=== PATIENT | male | born 1945 | race Caucasian/White ===

== ENCOUNTER 2021-06-20 14:18 | Emergency (ER) | payer OTHER ==
[~2021-06-20] VITALS: Ht 182.9 cm; Wt 117.9 kg
[2021-06-20 15:49] LABS: BASOPHILS ABSOLUTE AUTO 0.05 K/mm3 (0.00-0.23); BASOPHILS PERCENT AUTO 1 % (0-2); EOSINOPHILS ABSOLUTE AUTO 0.24 K/mm3 (0.00-0.68); EOSINOPHILS PERCENT AUTO 3 % (0-6); Hematocrit 39.5 % (37.0-53.0); Hemoglobin 12.6 g/dL (13.5-17.5); IMMATURE GRAN ABSOLUTE AUTO 0.03 K/mm3 (0.00-0.10); IMMATURE GRAN PERCENT AUTO 0 % (0-1); LYMPHOCYTES ABSOLUTE AUTO 0.66 K/mm3 (0.84-5.20); LYMPHOCYTES PERCENT AUTO 9 % (21-46); MONOCYTES ABSOLUTE AUTO 1.08 K/mm3 (0.16-1.47); MONOCYTES PERCENT AUTO 15 % (4-13); Mean Corpuscular HGB 29.4 pg (26.0-34.0); Mean Corpuscular HGB Conc 31.9 g/dL (31.5-36.5); Mean Corpuscular Volume 92 fL (80-100); Mean Platelet Volume 10.3 fL (9.1-12.4); NEUTROPHILS ABSOLUTE AUTO 5.18 K/mm3 (1.96-9.15); NEUTROPHILS PERCENT AUTO 72 % (41-73); Platelet Count 219 K/mm3 (150-400); RDW Standard Deviation 47.4 fL (35.1-46.3); Red Blood Cell Count 4.28 M/mm3 (4.30-5.90); White Blood Cell Count 7.24 K/mm3 (4.00-11.30)
[2021-06-20 16:04] LABS: Albumin, Blood 3.2 g/dL (3.4-5.0); Bilirubin, Total 1.2 mg/dL (0.1-1.0); Bun/Creatinine Ratio 13.4 (12.0-20.0); Calcium, Blood 8.6 mg/dL (8.5-10.1); Creatinine, Blood 2.02 mg/dL (0.60-1.20); Globulin, Blood 3.3 g/dL (2.2-4.0); Potassium, Blood 3.2 mmol/L (3.5-5.5); Total Protein, Blood 6.5 g/dL (6.4-8.2)
== END 2021-06-20 16:44 | disposition left against medical advice (07) ==
LOC: ER 14:18
PROVIDERS: Physician Assistant
DX: R21 Rash and other nonspecific skin eruption (principal); Z53.21 Procedure and treatment not carried out due to patient leaving prior to being seen by health care provider
CPT/HCPCS: 36415; 71046; 80053; 83690; 83880; 84484; 85025; 93005; 93010; 93971; 99284-25

== ENCOUNTER 2021-08-19 20:51 | Inpatient (IN) | payer OTHER ==
[~2021-08-19] VITALS: Ht 182.9 cm; Wt 123.5 kg
[2021-08-19 21:44] LABS: BASOPHILS ABSOLUTE AUTO 0.04 K/mm3 (0.00-0.23); BASOPHILS PERCENT AUTO 1 % (0-2); EOSINOPHILS PERCENT AUTO 1 % (0-6); Hematocrit 38.4 % (37.0-53.0); Hemoglobin 12.6 g/dL (13.5-17.5); IMMATURE GRAN ABSOLUTE AUTO 0.02 K/mm3 (0.00-0.10); IMMATURE GRAN PERCENT AUTO 0 % (0-1); LYMPHOCYTES ABSOLUTE AUTO 0.43 K/mm3 (0.84-5.20); LYMPHOCYTES PERCENT AUTO 6 % (21-46); MONOCYTES ABSOLUTE AUTO 0.86 K/mm3 (0.16-1.47); MONOCYTES PERCENT AUTO 12 % (4-13); Mean Corpuscular HGB 28.4 pg (26.0-34.0); Mean Corpuscular HGB Conc 32.8 g/dL (31.5-36.5); Mean Corpuscular Volume 87 fL (80-100); Mean Platelet Volume 9.8 fL (9.1-12.4); NEUTROPHILS PERCENT AUTO 80 % (41-73); Platelet Count 305 K/mm3 (150-400); RDW Coefficient Variation 17.3 % (11.7-14.2); RDW Standard Deviation 54.6 fL (35.1-46.3); Red Blood Cell Count 4.43 M/mm3 (4.30-5.90); White Blood Cell Count 7.35 K/mm3 (4.00-11.30)
[2021-08-19 22:01] LABS: Albumin, Blood 2.9 g/dL (3.4-5.0); Albumin/Globulin Ratio 0.7 (0.8-1.8); Bilirubin, Total 1.8 mg/dL (0.1-1.0); Bun/Creatinine Ratio 14.6 (12.0-20.0); Creatinine, Blood 1.85 mg/dL (0.60-1.20); Potassium, Blood 3.5 mmol/L (3.5-5.5); Total Protein, Blood 6.9 g/dL (6.4-8.2)
[2021-08-19 23:52] LABS: Influenza A, PCR NEGATIVE (NEGATIVE); Influenza B, PCR NEGATIVE (NEGATIVE); Resp Syncytial Virus, PCR NEGATIVE (NEGATIVE); SARS-Cov-2 (COVID-19) PCR, MMC NEGATIVE (NEGATIVE)
[2021-08-20 01:18] LABS: BASOPHILS ABSOLUTE AUTO 0.03 K/mm3 (0.00-0.23); BASOPHILS PERCENT AUTO 1 % (0-2); EOSINOPHILS ABSOLUTE AUTO 0.06 K/mm3 (0.00-0.68); EOSINOPHILS PERCENT AUTO 1 % (0-6); Hematocrit 34.4 % (37.0-53.0); Hemoglobin 11.3 g/dL (13.5-17.5); IMMATURE GRAN ABSOLUTE AUTO 0.01 K/mm3 (0.00-0.10); IMMATURE GRAN PERCENT AUTO 0 % (0-1); LYMPHOCYTES ABSOLUTE AUTO 0.35 K/mm3 (0.84-5.20); LYMPHOCYTES PERCENT AUTO 5 % (21-46); MONOCYTES ABSOLUTE AUTO 0.37 K/mm3 (0.16-1.47); MONOCYTES PERCENT AUTO 6 % (4-13); Mean Corpuscular HGB 28.6 pg (26.0-34.0); Mean Corpuscular HGB Conc 32.8 g/dL (31.5-36.5); Mean Corpuscular Volume 87 fL (80-100); Mean Platelet Volume 10.1 fL (9.1-12.4); NEUTROPHILS ABSOLUTE AUTO 5.66 K/mm3 (1.96-9.15); NEUTROPHILS PERCENT AUTO 87 % (41-73); Platelet Count 268 K/mm3 (150-400); RDW Coefficient Variation 17.2 % (11.7-14.2); RDW Standard Deviation 54.6 fL (35.1-46.3); Red Blood Cell Count 3.95 M/mm3 (4.30-5.90); White Blood Cell Count 6.48 K/mm3 (4.00-11.30)
[2021-08-20 01:31] LABS: Albumin, Blood 2.4 g/dL (3.4-5.0); Albumin/Globulin Ratio 0.7 (0.8-1.8); Bilirubin, Total 1.5 mg/dL (0.1-1.0); Calcium, Blood 7.7 mg/dL (8.5-10.1); Creatinine, Blood 1.56 mg/dL (0.60-1.20); Globulin, Blood 3.4 g/dL (2.2-4.0); Potassium, Blood 3.2 mmol/L (3.5-5.5); Total Protein, Blood 5.8 g/dL (6.4-8.2)
[2021-08-20 03:51] LABS: Source, Urine Foley catheter
[2021-08-20 03:53] LABS: Bilirubin, Urine Neg (Neg); Blood, Urine Neg (Neg); Glucose Qualitative, Urine Neg (Neg); Ketones, Urine Neg (Neg); Leukocyte Esterase, Urine Neg (Neg); Nitrite, Urine Neg (Neg); Protein, Urine Neg (Neg); Specific Gravity, Urine 1.015 (1.003-1.022); Urobilinogen, Urine NORM (Normal)
[2021-08-20 04:10] LABS: Appearance, Urine Clear (Clear); Color, Urine Yellow (P-Yellow)
--- NOTE | 2021-08-20 06:29 | NUR ---
SHIFT SUMMARY PT RESTED SOME AFTER ADMISSION FROM ER. ALERT AND ORIENTED, ABLE TO MAKE NEEDS KNOWN. A LITTLE FORGETFUL AT TIMES. SATS >90% ON ROOM AIR. HAS ORDERS FOR CPAP TO DECREASE FLUID VOL OVERLOAD ON LUNGS, BUT PATIENT DOES NOT WANT TO WEAR CPAP. TELE READS AFIB, RATE 110'S. NO CHEST PAIN. DIURESING, VOIDING TO URINAL. SEVERE FVO, BLE WOUNDS, SOME WEEPING. SCROTAL SWELLING. NO PAIN.
--- NOTE | 2021-08-20 09:06 | NUR ---
CARE ASSUMPTION THIS RN ASSUMED CARE FROM KIARRA RN AT 0700. VSS. TELE AFIB 100-115. PATIENT IS ALERT AND ORIENTED X4. PATIENT IS FORGETFUL AND CONFUSED AT TIMES AND NEEDS REMINDERS. PATIENT WILL CALL OUT FOR STAFF INSTEAD OF USING CALL LIGHT. THIS RN HAS EDUCATED AND REMINDED THE PATIENT TO USE CALL LIGHT. PATIENT YELLS OUT "OH LORD HELP ME". PATIENT HAS EXPRESSED WANTING TO GO HOME AND GET BACK TO HIS BECAUSE SHE HAS SHORT TERM MEMORY LOSS. A FRIEND IS CURRENTLY WITH HIS THE PATIENT STATES. THIS RN TRIED TO CALL HIS FOR HIM, BUT WAS UNABLE TO REACH HER. PATIENT CALLED A FAMILY MEMBER AND SPOKE WITH THEM THIS AM. PERRLA. PATIENT HAS A BILATERAL CYST/GROWTH IN THE CORNER OF HIS EYES. STATES HE NORMALLY HAS CRUSTYS AND WIPES THEM AWAY. PATIENT REPORTS NO PAIN. PATIENT REPORTS NO CHEST PAIN. STRONG RADAIL PULSES AND PEDIS. +3EDEMA IN BILATERAL LEGS. EDEMA IN SCROTUM. PATIENT STATES HIS SCROTUM AND LEGS ARE NORMALLY SWOLLEN, BUT ITS GETTING BETER. PATIENT USES THE BEDSIDE URINAL AND IS ABLE TO PRODUCE OUTPUT, BUT IS MINIMAL AT A TIME. ABD IS FIRM NONTENDER AND ACTIVE. SKIN HAS BILATERALLY SCAB/SCAR/REDDNESS TO LOWER EXTREMITIES. LEFT WRIST HAS PUNCTURE/SCAB. DRESSINGS APPLIED TO BOTH. WOUND CONSULT HAS BEEN PUT IN PLACE. PATIENT HAS SCATTERED SCABBING THROUGHOUT. MEPILEX TO BOTTOOM PREVENTIVE. SEE SHIFT ASSESSMENT FOR FURTHER DETAILS. PATIENT CAN TAKE ORAL MEDICATIONS WITH WATER. AM CARE PERFORMED BY PATIENT AFTER RN GAVE THE PATIENT SUPPLIES. PATIENT IS CURRENTLY EATING BREAKFAST AND HAS A FRIEND AT BEDSIDE. CALL LIGHT IS WITHIN REACH, BED IN LOWEST POSITION, AND BED ALARM ON. WILL CONTINUE TO MONITOR AND PROVIDE CARE.
[2021-08-20 11:29] LABS: Magnesium, Blood 2.4 mg/dL (1.6-2.4); Thyroid Stimulating Hormone 2.28 uIU/mL (0.360-4.800)
--- NOTE | 2021-08-20 11:49 | NUR ---
UPDATE MD MENON IN TO SEE PATIENT THIS AM. DISCUSSED THE PLAN OF CARE. PER MD ORDERS PATIENT IS PLACED ON A LASIX GTT AT 5MLS/HR. STRICT I&OS. PATIENT IS ABLE TO VOID SO CATHETER IS NOT PLACED. THIS RN SPOKED TO PATIENT SON ABOUT AN UPDATE. PATIENT SON, STEPHANIE IS ON HIS WAY FROM [place] TO BROILER CHEF OR COOK HIS MOM, PATIENTS , AND THEN WILL COME IN TOMORROW AM. PATIENT SON WAS INQUIRING ABOUT RESOURCES THEY COULD HAVE AT HOME, DUE TO THE PATIENTS HAVING DEMENTIA AND THE PATIENT TAKING CARE OF HER AND LACKING ON HIS SELF-CARE. THIS RN SPOKE WITH CARE MANAGEMENT ABOUT THE REQUEST AND DISCUSSED HOME HEALTH OR ASSISTED LIVING FACILITY. CARE MANAGEMENT IS GOING TO LOOK INTO THE INSURANCE AND DISCUSS WITH THE SON TO DEVELOP MORE OF A PLAN OF CARE FOR PATIENT POST DISCHARGE.
[2021-08-20] MEDS ORDERED: ALBU90OI INH (12:33)
[2021-08-20] MEDS ORDERED: AMLO10 PO (12:34)
[2021-08-20] MEDS ORDERED: ELIQUIS5 M2 PO (12:35)
[2021-08-20] MEDS ORDERED: LOSA50 PO (12:36)
[2021-08-20] MEDS ORDERED: FURO40 PO (12:36)
[2021-08-20] MEDS ORDERED: METO50ER PO (12:37)
[2021-08-20] MEDS ORDERED: NIACIN500 M1 PO (12:40)
[2021-08-20] MEDS ORDERED: POTA10T PO (12:41)
[2021-08-20] MEDS ORDERED: ROSU5 PO (12:42)
[2021-08-20] MEDS ORDERED: TRAZ50 PO (13:40)
[2021-08-20] MEDS ORDERED: SERT50 PO (13:40)
--- NOTE | 2021-08-20 13:40 | NUR ---
UPDATE THIS RN RECEIVED MEDICATION LIST FROM MS. PATIENT HOME MEDS ARE UPDATED IN CHART.
[2021-08-20 13:54] LABS: CPK Creatine Kinase 180 U/L (39-308)
--- NOTE | 2021-08-20 17:53 | NUR ---
SHIFT SUMMARY PATIENT NEURO REMAINS INTACT. VSS. TELE AFIB 100S. LASIX INFUSING. MAN CATH PLACED FOR STRICT I&OS. SAMPLE SENT TO LAB. PATIENT HAS HAD MULTIPLE VISITORS THROUGHOUT THE DAY. PATIENT HAD A BREATHING TREATMENT THIS EVENING FOR SHORTNESS OF BREATH AND WHEEZY. NO ACUTE CHANGES THIS SHIFT. CALL LIGHT WITHIN REACH AND BED IN LOWEST POSITION WITH BED ALARM ON. WILL CONTINUE TO MONITOR AND PROVIDE CARE UNTIL HAND OFF WITH NEXT SHIFT.
[2021-08-21 00:34] LABS: Albumin, Blood 2.8 g/dL (3.4-5.0); Anion Gap 10 mmol/L (6-16); Blood Urea Nitrogen 39 mg/dL (8-24); Bun/Creatinine Ratio 20.3 (12.0-20.0); CO2, Blood 29 mmol/L (21-32); Calcium, Blood 8.8 mg/dL (8.5-10.1); Chloride, Blood 97 mmol/L (98-108); Creatinine, Blood 1.92 mg/dL (0.60-1.20); Glomerular Filtration Rate 36 (60-); Glucose, Blood 146 mg/dL (70-99); Magnesium, Blood 2.3 mg/dL (1.6-2.4); Phosphorus, Blood 4.5 mg/dL (2.5-4.9); Potassium, Blood 3.5 mmol/L (3.5-5.5); Sodium, Blood 136 mmol/L (136-145)
--- NOTE | 2021-08-21 06:01 | NUR ---
NOC SHIFT SUMMARY PT SLEPT WELL OVERNIGHT. ANXIOUS BUT ORIENTED X4. SOME SHORT TERM MEMORY LOSS - WILL REPEAT QUESTIONS AND NEED FREQUENT REMINDERS TO USE CALL LIGHT APPROPRIATELY. VSS PER PT TREND - ON RA OR CPAP OVERNIGHT. SHORT RUNS OF VTACH NOTED (5-9 BEATS) ON TELEMETRY. PT ASYMPTOMATIC AND VSS. ON-CALL MD NOTIFIED OF RUNS OF VTACH AND K+ 3.5 WITH AM LABS WELL UOP OF 550 VIA MAN OVERNIGHT ON LASIX GTT. ORDER FOR IV POTASSIUM RECEIVED (SEE EMAR FOR DETAILS) NO FURTHER ORDERS AT THIS TIME. WILL CONTINUE TO MONITOR AND PASS ON TO DAY RN.
[2021-08-21 06:27] LABS: Hematocrit 39.9 % (37.0-53.0); Mean Corpuscular HGB 28.1 pg (26.0-34.0); Mean Corpuscular HGB Conc 32.6 g/dL (31.5-36.5); Mean Corpuscular Volume 86 fL (80-100); Mean Platelet Volume 10.2 fL (9.1-12.4); Platelet Count 321 K/mm3 (150-400); RDW Coefficient Variation 17.3 % (11.7-14.2); RDW Standard Deviation 54.4 fL (35.1-46.3); Red Blood Cell Count 4.62 M/mm3 (4.30-5.90); White Blood Cell Count 13.22 K/mm3 (4.00-11.30)
[2021-08-21 06:52] LABS: Alanine Aminotransfer (ALT/SGP 27 U/L (12-78); Albumin, Blood 2.8 g/dL (3.4-5.0); Albumin/Globulin Ratio 0.7 (0.8-1.8); Alk Phos 183 U/L (50-136); Anion Gap 10 mmol/L (6-16); Aspartate Aminotrans (AST/SGOT 35 U/L (12-37); Bilirubin, Total 1.3 mg/dL (0.1-1.0); Blood Urea Nitrogen 44 mg/dL (8-24); Bun/Creatinine Ratio 23.8 (12.0-20.0); CHOL/HDL RATIO 2.9; CO2, Blood 29 mmol/L (21-32); Calcium, Blood 8.9 mg/dL (8.5-10.1); Chloride, Blood 97 mmol/L (98-108); Cholesterol 143 mg/dL (50-200); Creatinine, Blood 1.85 mg/dL (0.60-1.20); Globulin, Blood 4.1 g/dL (2.2-4.0); Glomerular Filtration Rate 37 (60-); Glucose, Blood 143 mg/dL (70-99); HDL Cholesterol 49 mg/dL (>39); LDL/HDL RATIO 1.6; Low Density Lipoprotein Chol 78 mg/dL (0-110); Potassium, Blood 3.3 mmol/L (3.5-5.5); Sodium, Blood 136 mmol/L (136-145); Total Protein, Blood 6.9 g/dL (6.4-8.2); Triglycerides 80 mg/dL (30-160); Very Low Density Lipoprot Chol 16 mg/dL (6-32)
--- NOTE | 2021-08-21 07:16 | NUR ---
pt is sleepy. Nodding off while I'm in the room, when there is no conversation. SPO2 dropping to 88% while asleep without the CPAP. When awake, spo2 is 93-97% during conversation. Put CPAP on, and spo2 is greater than 90% while sleeping. He awakens easily and is oriented and appropriate in conversation.
--- NOTE | 2021-08-21 08:59 | NUR ---
Pt is very sleepy. Falling asleep during conversation with visiting hand crocheter. He says that he would be more comfortable in the recliner. He was not able to tolerate the CPAP very well earlier this morning. Assisted up to the chair for medication administration. He is still very sleepy. Able to have some conversation, but falling asleep immediately after.
--- NOTE | 2021-08-21 09:32 | NUR ---
wound care completed, as ordered for bilateral lower extremity areas of scabs and redness; wound care also done on the right upper chest for wound which is open, with liquid brown drainage under the tegederm. All wounds were cleansed with skintegrity, patted dry with sterile gauze, and covered with xeroform dressing and then with absorbent non adherent or gauze dressing and secured. Wounds on the lower extremities are not open. Pt is very sleepy. Put on the CPAP, and discussed settings with Mari ZafarRT, here in the room. Pt is somewhat confused also, asking about the urine drainage tube and if it needs to be connected. Pillows to back, head and arms. Legs are elevated to reduce swelling.
--- NOTE | 2021-08-21 09:57 | NUR ---
Dr. Richardson here, rounded on pt at this time.
--- NOTE | 2021-08-21 10:49 | NUR ---
TAKEN OFF of the CPAP for conversation with his visitor.
--- NOTE | 2021-08-21 12:09 | NUR ---
Pt sitting up in chair, getting set up for lunch. and son Edmund at the bedside. Pt states he is feeling a little bit lightheaded.
--- NOTE | 2021-08-21 14:03 | NUR ---
Spoke with daughter Suzy by phone. She is in [place]. Son Edmund here [facility] for 2 more days. Both were updated on pt's condition and current treatment plan. Ellie here at bedside; she has dementia.
--- NOTE | 2021-08-21 15:14 | NUR ---
Assisted back to bed from the chair. Family at bedside.
--- NOTE | 2021-08-21 15:54 | NUR ---
Records requested from the [facility]. 06/18/2021 Echocardiogram was received and placed in the paper chart.
--- NOTE | 2021-08-21 16:27 | NUR ---
Call to Dr. Richardson to report that have report of Echocardiogram from the [facility], and read results to her over the phone. Pt's current heart rate (>100 bpm) is too high to do an Echocardiogram at this time.
--- NOTE | 2021-08-21 17:53 | NUR ---
Helped the patient to sit on side of bed, and then to stand up to walker and walk a few steps to the chair. He is short of breath with the activity, and heart rate up to 133 bpm during activity of walking, down to 113-120 while sitting up in chair, eating dinner.
[2021-08-21 23:18] LABS: Base Excess Venous 6.1 mmol/L; Bicarbonate Venous 27.6 mmol/L (24.0-30.0); PCO2 Venous 49.3 mmHg (38-42)
[2021-08-22 03:57] LABS: Hematocrit 38.1 % (37.0-53.0); Hemoglobin 12.5 g/dL (13.5-17.5); Mean Corpuscular HGB 28.2 pg (26.0-34.0); Mean Corpuscular HGB Conc 32.8 g/dL (31.5-36.5); Mean Corpuscular Volume 86 fL (80-100); Mean Platelet Volume 10.3 fL (9.1-12.4); Platelet Count 307 K/mm3 (150-400); RDW Coefficient Variation 17.2 % (11.7-14.2); RDW Standard Deviation 53.4 fL (35.1-46.3); Red Blood Cell Count 4.44 M/mm3 (4.30-5.90); White Blood Cell Count 13.64 K/mm3 (4.00-11.30)
[2021-08-22 04:21] LABS: Albumin, Blood 2.7 g/dL (3.4-5.0); Albumin/Globulin Ratio 0.7 (0.8-1.8); Bilirubin, Total 1.4 mg/dL (0.1-1.0); Bun/Creatinine Ratio 27.3 (12.0-20.0); Calcium, Blood 8.7 mg/dL (8.5-10.1); Creatinine, Blood 1.87 mg/dL (0.60-1.20); Globulin, Blood 3.7 g/dL (2.2-4.0); Potassium, Blood 2.7 mmol/L (3.5-5.5); Total Protein, Blood 6.4 g/dL (6.4-8.2)
--- NOTE | 2021-08-22 06:04 | NUR ---
NOC SHIFT SUMMARY PT ORIENTED X4 OVERNIGHT BUT INTERMITTENT CONFUSION, ESPECIALLY WHEN FIRST WAKING UP. RAMBLES ABOUT TOPICS, NOT ALWAYS COHERENT. PT BELIEVED EARLY IN SHIFT IT WAS MORNING AND HE WAS BEING DISCHARGED. EASILY REORIENTED AND PLEASANT. ANXIOUS AT TIMES. HR INCREASED TO 130S AT REST AND INCREASING TACHYPNEA. ON-CALL MD NOTIFIED AND PRN METOPROLOL AND VBG X1 ORDERED PER DR. HINKLE. METOPROLOL GIVEN X2 WITH HR DECREASE TO 100S-110S AT REST. PT MOVED TO A ROOM CLOSER TO NURSES STATION DUE TO SETTING OFF BED ALARM AND RESTLESS. MAN CATHETER IN PLACE WITH GOOD UOP OVERNIGHT. LASIX GTT RUNNING PER PROVIDER ORDER. WILL CONTINUE TO MONITOR AND PASS ON TO DAY RN.
--- NOTE | 2021-08-22 07:42 | NUR ---
Dillon is easily awakened, but he falls back to sleep during conversation. Denies any trouble breathing and stated that he is ready to go home. HE is reclined in the chair at the moment. Spo2 94% on room air while sleeping. Respirations 28/min while sleeping. He does not tolerate the CPAP. Heart rate is 105-122 bpm, atrial fibrillation with PVCs.
--- NOTE | 2021-08-22 07:58 | NUR ---
IV Lasix gtt stoppped at this time, per orders.
--- NOTE | 2021-08-22 08:00 | NUR ---
Dillon is very sleepy this morning. He has not been tolerant of the CPAP yesterday; however, as he has hypoxemia occasionally while sleeping without it and made no objection to it being placed at this time, it is now on and he is appearing comfortable, asleep, in the recliner.
--- NOTE | 2021-08-22 12:07 | NUR ---
1100 The pt appeared to be having difficulty breathing in the recliner. He was calling out, moaning, and attempting to reposition in order to improve his comfort. States that he is just uncomfortable. He stated that he would like to get up and get back into the bed. He has been in the recliner since the start of my shift today. Able to stand, use the walker to take a few steps from the chair to the bed. Assisted to lie down and HOB elevated to assist with his breathing. Vital signs are stable, but he appears to still have trouble breathing. CPAP was put on to help with his breathing. He said that it was tolerable.
--- NOTE | 2021-08-22 12:43 | NUR ---
Infusion of amiodarone bolus complete. The pt appears to be sleeping now, with CPAP ON, HOB elevated to 44 degrees. Bed alarm is on as pt has awoken at times confused initially until he reorients to place and events. Heart rate now is slightly decreased, 97-109 bpm, stil atrial fibrillation. Blood pressure noted lower than before. Continuing to monitor the blood pressure every 15 minutes during the initiation of amiodarone gtt at this time.
--- NOTE | 2021-08-22 15:02 | NUR ---
Multiple visits today. Pt resting in bed and wearing CPAP during initial visit. Pt struggles with staying awake and speach is garbled. Ended visit to allow Pt to rest. Pt's son Edmund arrives to visit. Met with Edmund at [facility] Nurses station. Edmund reports Pt's spouse has severe dementia and is attempting to find placement for her. Primary RN Ilda present during discussion. Engaged in therapeutic conversation regarding code status. Educated on life sustaining treatments including risk factors and implications of CPR. Edmund reports he feels Pt would not want to receive CPR or to be intubated. He reports plan to discuss further with his sister and will let staff know regarding code status wishes. Offered therapeutic listening and answered questions. Brief education on disease process including trajectory of disease. Discussed the importance a making multiple plans as disease progresses. Edmund expresses appreciation and reports no other concerns at this time. Palliative Care will remain available.
--- NOTE | 2021-08-22 16:08 | NUR ---
Pt is sitting up in bed, talking with visitors. STates that he feels like he needs to wear his CPAP. It was placed back on . At this time, Dr. Richardson is in the pt's room, talking with the son Edmund. of pt is also at the bedside, and two other friends of the pt are at the bedside as well.
--- NOTE | 2021-08-22 16:45 | NUR ---
pt's son Seb and Ellie are at the bedside. Ellie has dementia, per son. Ellie herself told me that the pt is her grandfather. I asked if it was her , and she said, no, he's my grandfather.
--- NOTE | 2021-08-22 16:47 | NUR ---
Pt is requiring 2 l/min of oxygen to keep his spo2 greater than 90% while sleeping. He is very restless, also lethargic. States that he just feels really tired. Romazicon given per orders, with no change in patient's mentation. He is not tolerating the CPAP very well, but is tolerating the oxygen very well.
[2021-08-22 17:11] LABS: PCO2 Arterial 48.9 mmHg (35-45); PO2 Arterial 80.1 mmHg (80-100); pH Blood Arterial 7.45 (7.35-7.45)
--- NOTE | 2021-08-22 18:56 | NUR ---
SUMMARY iDllon has been sleepy all day. He is lethargic, awakening only for conversations but barely able to stay awake during the conversations today with staff, physicians, family and other visitors. His work of breathing is increased since yesterday. For much of the day he was restless. He used his CPAP some, but not able to keep it on consistently, and this evening he is wearing 1-2 l/min O2 delivery to keep his spo2 greater than 90% while he is sleeping. Heart rate has slowed down only slightly today, and blood pressures also dropped after the administration of amiodarone gtt was started. Cardiology was consulted and Dr. Marinelli came to see the patient and also talked with Son Edmund and piedad's who were in the room at the time. This evening Dillon did have a good appetite and ate his first meal of the day. banks catheter is in place, draining large amounts of clear yellow urine. He has generalized edema of his arms, trunk and legs. Noted weight is 1 kg higher than the admission weight. This despite a negative fluid balance.
[2021-08-22 20:57] LABS: Creatinine, Blood 1.98 mg/dL (0.60-1.20); Potassium, Blood 2.7 mmol/L (3.5-5.5)
--- NOTE | 2021-08-22 22:40 | NUR ---
NEW ORDER FOR 10 MG JARDIENCE X 3 DOSES. REEIVED 25 MG PILL FROM PHARMACY. CANNOT SPLIT THIS PILL TO EQUAL ORDERED DOSE OF 10 MG. REACEHED OUT TO LEONILA, PHARMD, TO DISCUSS THIS MATTER. PER LEONILA, 25 MG IS THE ONLY PILL DOSE THAT THE HOSPITAL CARRIES. HE IS GOING TO RESEARCH THIS MATTER FURTHER AND WILL GET BACK TO ME.
--- NOTE | 2021-08-23 01:00 | NUR ---
PER LEONILA PHARMD, HE CONFIRMED THAT THE HOSPITAL DOES NOT HAVE THE 10 MG PO DOSE OF JARDIENCE IN STOCK. HE ADVISED TO HOLD THE CURRENT DOSE AND TO FOLLOW UP WITH THE ORDERING PHYSICIAN (CARDIOLOGY) IN THE MORNING TO DETERMINE IF CAN CHANGE THE DOSE TO 12.5 MG (HALF OF THE 25 MG PILL) OR IF WANTS TO CONSIDER OTHER OPTIONS. ALTHOUGH NOT SPECIFICALLY STATED IN DR. BISHOP'S CONSULTATION NOTE, IT IS SUSPECTED THAT THE JARDIENCE HAS BEEN ORDERED FOR TREATMENT OF PATIENT'S HEART FAILURE.
[2021-08-23 02:49] LABS: Hematocrit 39.1 % (37.0-53.0); Hemoglobin 13.1 g/dL (13.5-17.5); Mean Corpuscular HGB 28.7 pg (26.0-34.0); Mean Corpuscular HGB Conc 33.5 g/dL (31.5-36.5); Mean Corpuscular Volume 86 fL (80-100); Mean Platelet Volume 11.3 fL (9.1-12.4); Platelet Count 411 K/mm3 (150-400); RDW Coefficient Variation 17.2 % (11.7-14.2); Red Blood Cell Count 4.57 M/mm3 (4.30-5.90); White Blood Cell Count 10.33 K/mm3 (4.00-11.30)
--- NOTE | 2021-08-23 03:30 | NUR ---
PT UP TO CHAIR. WAS ABLE TO SLEEP FOR APPROXIMATELY 5 HOURS WITH CPAP ON. DYSPNEA WITH EXERTION SLIGHTLY IMPROVED. ROOM AIR SpO2 AT 94-96%, WOUND DRESSING CHANGED TO BLE ORDERED.
[2021-08-23 04:14] LABS: Albumin, Blood 2.7 g/dL (3.4-5.0); Albumin/Globulin Ratio 0.7 (0.8-1.8); Bilirubin, Total 1.5 mg/dL (0.1-1.0); Bun/Creatinine Ratio 25.9 (12.0-20.0); Calcium, Blood 8.9 mg/dL (8.5-10.1); Creatinine, Blood 2.01 mg/dL (0.60-1.20); Globulin, Blood 3.9 g/dL (2.2-4.0); Potassium, Blood 2.6 mmol/L (3.5-5.5); Total Protein, Blood 6.6 g/dL (6.4-8.2)
--- NOTE | 2021-08-23 05:07 | NUR ---
CALL TO HOSPITALIST JUMANA POTASSIUM 2.6. CREATININE 2.1. CURRENTLY HAS ORDERS FOR 80 MG IV LASIX Q6 HOURS X 8 DOSES. THIS MORNING WILL BE DOSE 2 OF 8. ORDERS RECEIVED FOR 20 mEQ IV POTASSIUM. ADMINISTER LASIX ORDERED.
--- NOTE | 2021-08-23 07:00 | NUR ---
ASSUMPTION OF CARE: PATIENT HAS BEEN RESTING ON RA, WHEN ARRIVED FOR BEDSIDE REPORT PATIENT SPO2 ~88% NIGHT RN AND SELF PLACED ON CPAP PATIENT WAS RESTING, REPOSITIONED AND PATIENT SLEEPING. PATIENT WAS MORE DROWSY HE WAS FIRST WAKING UP, ALERT AND ORIENTED X 4, IS CHEESH-NA, DOES MUMBLE MOST OF THE TIME. INFUSION OF K+ 20MeQ WAS RUNNING ON ASSUMPTION OF PATIENT. PATIENT IN NO SIGNS OF ACUTE DISTRESS. MAN DRAINING CLEAR TO GRAVITY, ONLY CONCERN FROM NIGHT RN WAS JARDIANCE DOSING AND K+ REPLACEMENT, WHICH PROVIDER WAS ALREADY PLACEING ORDER BY [id number]. WILL CONTINUE TO MONITOR.
[2021-08-23 14:25] LABS: Albumin, Blood 2.4 g/dL (3.4-5.0); Anion Gap 6 mmol/L (6-16); Blood Urea Nitrogen 51 mg/dL (8-24); Bun/Creatinine Ratio 27.1 (12.0-20.0); CO2, Blood 38 mmol/L (21-32); Chloride, Blood 94 mmol/L (98-108); Creatinine, Blood 1.88 mg/dL (0.60-1.20); Glomerular Filtration Rate 37 (60-); Glucose, Blood 110 mg/dL (70-99); Phosphorus, Blood 4.2 mg/dL (2.5-4.9); Potassium, Blood 2.7 mmol/L (3.5-5.5); Sodium, Blood 138 mmol/L (136-145)
--- NOTE | 2021-08-23 16:51 | NUR ---
END OF SHIFT SUMMARY: PATIENT HAS BEEN SLEEPY MOST OF THE DAY WAS MOST ALERT FROM ONCOMING OF SHIFT TO ABOUT LUNCH TIME. PATIENT HAS BEEN DIURESING, AND RECIEVING IV AND PO K+ 80 MEq FINISHED BEFORE MARK OF RENAL AND ANOTHER 80 MeQ WAS GIVEN 20 IS INFUSING AND 20 MORE WILL BE BEFORE THE END OF SHIFT. PATIENT HAS BEEN CHEST PAIN FREE, ENDORSES EASIER WORK OF BREATHING, DOES HAVE A COUGH, BUT NO SPUTUM, DRESSINGS CHANGED THIS AM BY NIGHT RN, PATIENT FAMILY AT BEDSIDE. PATIENT HAS BEEN ON 2L VIA NC PRN FOR COMFORT, AND WHEN SLEEPING HEAVILY, PATIENT GETS SWITCHED TO CPAP WITH A 4 L BLEED IN. PATIENT HAS BEEN TOLERATING THE CPAP FOR MULTIPLE SHORT HOUR TO HOUR AND HALF INSTANCES. HELD PATIENTS LUNCH DUE TO SUCH SLEEPINESS. PATIENT STILL WAKES TO ANSWER QUESTIONS APPROPRIATELY, MUMBLES, CAN BE SLOW TO RESPOND, WITH SOME [place]. PATIENT HAS BEEN AGREEABLE TO TREATMENT PLAN AND PLEASANT. PATIENT ENDORSES DECREASED SCROTAL AND PENILE EDEMA. PATIENT TOLERATING THE MAN WHICH IS DRAINING WELL TO GRAVITY, CLEAR YELLOW. HYDRALAZINE AND CARVEDILOL HAVE ALWAYS BEEN TWO HOURS APART REQUESTED BY CARDIOLOGY. CARDIOLOGY SEEN PATIENT TODAY, BUT HOSPITALIST IS TO TREAT K+. WILL CONTINUE TO MONITOR AT THIS TIME.
--- NOTE | 2021-08-23 23:42 | NUR ---
UPDATE PATIENT ANXIOUS AND CALLING OUT. PATIENT IS EASILY REDIRECTIBLE BUT WILL CONTINUE TO YELL OUT STATING "HELP ME" AND STATES THAT HE IS MISSING HIS . THIS RN OFFERED TO CALL PATIENT'S FOR HIM BUT HE DECLINED D/T TIME OF NIGHT. PATIENT REQUESTING SOMETHING FOR HIS COUGH AND TO HELP HIM SLEEP. CALL PLACED TO HOSPITALIST, SEE UPDATED ORDERS/EMAR.
[2021-08-24 04:28] LABS: Bun/Creatinine Ratio 26.7 (12.0-20.0); Calcium, Blood 9.3 mg/dL (8.5-10.1); Creatinine, Blood 1.91 mg/dL (0.60-1.20); Potassium, Blood 2.7 mmol/L (3.5-5.5)
--- NOTE | 2021-08-24 06:38 | NUR ---
SHIFT SUMMARY PATIENT ALERT AND ORIENTED, FORGETFUL AT TIMES. PATIENT WILL YELL OUT AND STATE "I CAN'T TURN MY BRAIN OFF TO SLEEP". PATIENT ONLY SLEPT FOR APPROXIMATELY 2 HOURS THIS SHIFT. SEE PREVIOUS NOTE. SOFT BPs. TELE READING AFIB WITH FREQUENT PVCs 110s. ON 2L NC WITH O2 SAT >90%. DENIES CHEST PAIN OR SHORTNESS OF BREATH. DIURESING, MAN IN PLACE DRAINING YELLOW URINE TO GRAVITY. BILAT LOWER EXTREM DRESSING C/D/I. POTASSIUM INFUSING PER EMAR FOR REPLACEMENT. NO OTHER SIGNIFICANT CHANGES, WILL REPORT TO DAY SHIFT RN.
--- NOTE | 2021-08-24 16:35 | NUR ---
SHIFT SUMMARY PT REMAINS ALERT AND ORIENTED. HR HAS BEEN AFIB 90-110'S. BP SOFT AT TIMES, BUT STABLE THIS AFTERNOON. PT DENIED ANY PAIN ALL SHIFT. MAN PATENT AND DRAINING CLEAR YELLOW URINE. PT UP TO CHAIR AT TIMES THROUGHOUT SHIFT WITH 2 ASSIST GB AND WALKER. FAMILY AT BEDSIDE ALL SHIFT. WILL CONITNUE TO MONITOR AND REPORT TO ONCOMING RN
[2021-08-24 17:00] LABS: Albumin, Blood 2.3 g/dL (3.4-5.0); Anion Gap 4 mmol/L (6-16); Blood Urea Nitrogen 49 mg/dL (8-24); Bun/Creatinine Ratio 26.8 (12.0-20.0); CO2, Blood 42 mmol/L (21-32); Calcium, Blood 9.1 mg/dL (8.5-10.1); Chloride, Blood 90 mmol/L (98-108); Creatinine, Blood 1.83 mg/dL (0.60-1.20); Glomerular Filtration Rate 38 (60-); Glucose, Blood 115 mg/dL (70-99); Phosphorus, Blood 4.5 mg/dL (2.5-4.9); Potassium, Blood 2.9 mmol/L (3.5-5.5); Sodium, Blood 136 mmol/L (136-145)
--- NOTE | 2021-08-24 19:35 | NUR ---
CARE ASSUMPTION: RECEIVED REPORT FROM DIANA HA RN. PATIENT ASLEEP IN BED WITH FIRST K-RIDER INFUSING. BED LOW WITH CALL LIGHT IN REACH. MAN DRAINING TO GRAVITY.
[2021-08-25 05:01] LABS: Albumin, Blood 2.4 g/dL (3.4-5.0); Anion Gap 6 mmol/L (6-16); Blood Urea Nitrogen 49 mg/dL (8-24); Bun/Creatinine Ratio 27.8 (12.0-20.0); CO2, Blood 43 mmol/L (21-32); Chloride, Blood 89 mmol/L (98-108); Creatinine, Blood 1.76 mg/dL (0.60-1.20); Glomerular Filtration Rate 40 (60-); Glucose, Blood 112 mg/dL (70-99); Phosphorus, Blood 4.3 mg/dL (2.5-4.9); Sodium, Blood 138 mmol/L (136-145)
--- NOTE | 2021-08-25 05:33 | NUR ---
SHIFT SUMMARY: PATIENT DIURESING WELL - >2500 URINE OUTPUT THIS SHIFT. SYSTOLIC BP <100, OTHER VS WNL. POTASSIUM 3.0 THIS AM. MAINTAINED FLUID RESTRICTION AND RE-EDUCATED PATIENT OF HIS ALLOTMENTS. PATIENT MISSING SPOUSE AND WOULD LIKE HER "TO STAY THE NIGHT" IF HE IS NOT D/C'D TODAY. TOLD PATIENT THAT IS UNLIKELY BUT SHE IS WELCOME TO COME DURING VISITING HOURS. PATIENT SLEPT IN BRIEF BURSTS, MOANED, AND TALKED TO SELF OR CALLED OUT FOR THIS RN BY NAME T/O THE NIGHT. DOES NOT USE CALL LIGHT. BED LOW WITH CALL LIGHT IN PLACE. WILL CONTINUE TO MONITOR AND REPORT TO ONCOMING RN.
--- NOTE | 2021-08-25 06:10 | NUR ---
CALLED RE: 3.O POTASSIUM AND RECEIVED ORDERS FOR 40 MEQ IV X1.
--- NOTE | 2021-08-25 17:12 | NUR ---
SHIFT SUMMARY PT REMAINS ALERT AND ORIENTED. HR AFIB 90-110'S. BP SOFT THIS AM, BUT HAS IMPROVED THIS AFTERNOON. PT DENIES ANY PAIN. EDEMA TO BLE HAS SIGNIFICANTLY IMPROVED AND IS NOW 1+ PITTING EDEMA. PT UP MULTIPLE TIMES THIS SHIFT WIHT 1 ASSIST AND FWW. PT HAD BED BATH TODAY. MAN PATENT AND DRAINING. WILL CONTINUE TO MONITOR AND REPORT TO ONLORETA POPE
--- NOTE | 2021-08-26 05:16 | NUR ---
SHIFT SUMMARY NO ACUTE CHANGES THIS SHIFT. VSS. AXO, IMPULSIVE. BED ALATRM ON. IN AFIB, SOFT BP'S BUT PO CARDIAC MEDS ADMINISTERED SBP >80. PT ON RA. PT UNABLE TO PASS BM THIS SHIFT, ON BSC JUST PASSED FLATULENCE. MAN REMAINS PATENT AND DRAINING, REMAINS CONSTANT SUBJECT OF ATTENTION FOR PATIENT. HAS LOST 22LBS PER SCALE. PT HAS BEEN OOB TO CHAIR, BACK TO BED AND BACK AND FORTH A FEW TIMES THIS SHIFT, PT IS RESTLESS ABOUT GOING HOME TO HIS . WOUNDS PRESENT, DRESSED. PENIS/SCROTUM REMAIN SWOLLEN. GENERALIZED EDEMA T/O BODY AND +1 - +2 EDEMA TO LEGS NOTED. FLUID RESTRICTION REMAINS AT 1500MLS, REMAINED WITHIN THIS PARAMETER THIS SHIFT. OTHERWISE, PT RESTING IN BED BUT HAS DENIED SLEEPING MUCH.
[2021-08-26 05:35] LABS: Albumin, Blood 2.5 g/dL (3.4-5.0); Anion Gap 6 mmol/L (6-16); Blood Urea Nitrogen 50 mg/dL (8-24); Bun/Creatinine Ratio 26.5 (12.0-20.0); CO2, Blood 41 mmol/L (21-32); Calcium, Blood 8.8 mg/dL (8.5-10.1); Chloride, Blood 89 mmol/L (98-108); Creatinine, Blood 1.89 mg/dL (0.60-1.20); Glomerular Filtration Rate 36 (60-); Glucose, Blood 106 mg/dL (70-99); Phosphorus, Blood 3.7 mg/dL (2.5-4.9); Potassium, Blood 3.3 mmol/L (3.5-5.5); Sodium, Blood 136 mmol/L (136-145)
--- NOTE | 2021-08-26 08:21 | NUR ---
After breakfast, Dillon requested to get up and walk. He was able to walk with the walker outside of the room and a short distance in the hallway. Then walked into his bathroom to use the toilet. He is now back in the recliner after brushing his teeth. He tolerated the activity with only minimal assistance, and no dyspnea. Heart rate was up to 133 but generally 115-120 during the activity. Back in the chair, he is talking on the phone and heart rate is 104-119.
--- NOTE | 2021-08-26 10:20 | NUR ---
Dr. Marinelli was here to see the patient. States that pt should still be using the CPAP at night due to his sleep apnea which he strongly suspects exists. The pt is lethargic, appearing to sleep in between conversations. He is closing his eyes and seems to drop off to sleep during conversations as well. Awakens very easily. He is sitting up in the recliner. Spo2 99% on room air while awake and 94% while asleep. Shen catheter is draining clear yellow urine. Pt still has significant swelling of penis and scrotum, although it does appear to be improved from last Wednesday.
--- NOTE | 2021-08-26 11:30 | NUR ---
Sitting up in chair, asleep when not having conversation. Noted 25 second periods of apnea, followied by tachypnea 20 breaths/30 seconds while sleeping.
--- NOTE | 2021-08-26 14:16 | NUR ---
Pt ambulated in the hallway, down to PCU room 15 while using the walker and RN standing by. He tolerated it well, with heart rate noted 110s and 90s primarily. Blood pressure was 90/73 upon return to the room, and he had no dyspnea nor complaints of pain or dizzyness/lightheadedness.
[2021-08-26 15:37] LABS: Bun/Creatinine Ratio 26.8 (12.0-20.0); Calcium, Blood 8.9 mg/dL (8.5-10.1); Creatinine, Blood 1.9 mg/dL (0.60-1.20); Potassium, Blood 3.2 mmol/L (3.5-5.5)
--- NOTE | 2021-08-26 18:21 | NUR ---
Ambulatory in hallway, down to room PCU 15 from PCU 9 and back again. Tolerated the activity very well. Assisted back into bed afterwards. Noted pink tinge to the urine in the collection bag. Pt had pull-up on that was making the banks taunt. Pull-up taken off.
--- NOTE | 2021-08-26 21:12 | NUR ---
CARE ASSUMPTION PT IS LYING IN BED IN NO OBVIOUS DISTRESS. O2 SATS >92% ON RM AIR. BP IS SOFT BUT STABLE, BP MEDS GIVEN PER PARAMETERS. THIS RN CONFIRMED W RT THAT SLEEP STUDY TO BE DONE THIS SHIFT. PT DENYING ANY FURTHER NEEDS AT THIS TIME.
[2021-08-27 04:45] LABS: BASOPHILS ABSOLUTE AUTO 0.03 K/mm3 (0.00-0.23); BASOPHILS PERCENT AUTO 0 % (0-2); EOSINOPHILS ABSOLUTE AUTO 0.28 K/mm3 (0.00-0.68); EOSINOPHILS PERCENT AUTO 4 % (0-6); Hematocrit 35.9 % (37.0-53.0); Hemoglobin 11.9 g/dL (13.5-17.5); IMMATURE GRAN ABSOLUTE AUTO 0.05 K/mm3 (0.00-0.10); IMMATURE GRAN PERCENT AUTO 1 % (0-1); LYMPHOCYTES ABSOLUTE AUTO 0.88 K/mm3 (0.84-5.20); LYMPHOCYTES PERCENT AUTO 11 % (21-46); MONOCYTES ABSOLUTE AUTO 1.12 K/mm3 (0.16-1.47); MONOCYTES PERCENT AUTO 15 % (4-13); Mean Corpuscular HGB 28.2 pg (26.0-34.0); Mean Corpuscular HGB Conc 33.1 g/dL (31.5-36.5); Mean Corpuscular Volume 85 fL (80-100); Mean Platelet Volume 10.6 fL (9.1-12.4); NEUTROPHILS ABSOLUTE AUTO 5.36 K/mm3 (1.96-9.15); NEUTROPHILS PERCENT AUTO 70 % (41-73); Platelet Count 272 K/mm3 (150-400); RDW Coefficient Variation 16.8 % (11.7-14.2); RDW Standard Deviation 51.9 fL (35.1-46.3); Red Blood Cell Count 4.22 M/mm3 (4.30-5.90); White Blood Cell Count 7.72 K/mm3 (4.00-11.30)
[2021-08-27 04:57] LABS: Albumin, Blood 2.5 g/dL (3.4-5.0); Anion Gap 7 mmol/L (6-16); Blood Urea Nitrogen 54 mg/dL (8-24); Bun/Creatinine Ratio 27.3 (12.0-20.0); CO2, Blood 41 mmol/L (21-32); Calcium, Blood 8.7 mg/dL (8.5-10.1); Chloride, Blood 88 mmol/L (98-108); Creatinine, Blood 1.98 mg/dL (0.60-1.20); Glomerular Filtration Rate 34 (60-); Glucose, Blood 104 mg/dL (70-99); Magnesium, Blood 2.6 mg/dL (1.6-2.4); Phosphorus, Blood 4.3 mg/dL (2.5-4.9); Potassium, Blood 3.1 mmol/L (3.5-5.5); Sodium, Blood 136 mmol/L (136-145)
--- NOTE | 2021-08-27 05:55 | NUR ---
LIFE SKILLS COORDINATOR SUMMARY PT BEGAN THE SHIFT LETHARGIC BUT HAS BEEN MUCH MORE AWAKE THIS SHIFT ONLY SLEEPING FROM [id number] SO HIS SLEEP STUDY WAS UNSUCCESSFUL. MIDIGHT DOSE OF LASIX WAS HELD DUE TO LOW BP W SBP IN THE 70'S. TELE SHOWING AFIB 90-100'S THIS SHIFT. PT AFEBRILE THIS SHIFT. O2 SATS .90% ON RM AIR. PT WAS VERY ANXIOUS THIS SHIFT GOING FROM HIS BED TO THE RECLINER SEVERAL TIMES W ASSISTANCE STATING HIS DESIRE TO GO HOME. PT'S MAN PATENT AND DRAINING BLOOD TINGED URINE THIS SHIFT. PT STILL HAVING COUGHING FITS THROUGHOUT THE NIGHT BUT MAINTAINED O2 SATS ON RM AIR DESPITE THIS. PT CURRENTLY SITTING IN RECLINER W CALL LIGHT. AM LABS SHOWED LOW K SO PROVIDER CONTACTED FOR REPLACEMENT, SEE EMAR FOR DETAILS. WILL REPORT TO ONCOMING RN.
--- NOTE | 2021-08-27 07:00 | NUR ---
Pt is saying this morning that he needs to get home, because he has so much to do and his kids are here from out of state. He is conversant, states he is tired, and "at about 50%." STates that he is hungry and really wants to go home. He is sitting up in recliner, nodding off to sleep when not in conversation. Per report, the pt did not sleep last night and so the sleep study was not able to be completed.
--- NOTE | 2021-08-27 07:22 | NUR ---
Urine noted this morning in collection bag and the banks tubing is yellow, without any blood tinge. Noted some yellow drainage from the urethra, but pt states it is not painful. Scrotal swelling is decreased, in fact the pt states it seems "back to normal"; however, his penile swelling seems worse today. The pt does not seem to recognize the penile swelling as abnormal. He is very sleepy today.
--- NOTE | 2021-08-27 09:41 | NUR ---
Pt back in bed after working with PT/OT this morning. Dr Marinelli was here also rounding on the pt. The pt is slightly confused at times, and very tired from not sleeping last night. He thought that it was 930 pm. Frequent dry cough noted. Given cough syrup as ordered. He is back in bed now after the therapy.
--- NOTE | 2021-08-27 13:02 | NUR ---
Pt is sitting up in chair, alert and talking with friend Dexter who is visiting. Blood pressure is low, systolic less than 80; so apresoline is held at this time. The pt is asymptomatic.
--- NOTE | 2021-08-27 14:18 | NUR ---
Banks was dc'd. Penis noted still very swollen, but pt had no discomfort when the banks was dc'd. Perineal cleasing done with redyclease cloths.
--- NOTE | 2021-08-27 15:34 | NUR ---
Pt voided 50 cc clear yellow urine in urinal, with minimal assistance to get to side of the bed.
[2021-08-28 06:19] LABS: Hematocrit 35.8 % (37.0-53.0); Hemoglobin 11.7 g/dL (13.5-17.5)
--- NOTE | 2021-08-28 06:41 | NUR ---
NOC SHIFT SUMMARY PT ORIENTED X4 OVERNIGHT, NEEDS REORIENTING WHEN FIRST AWAKENS. VSS PER PT TREND, ON RA. GENERALIZED PAIN AND RELIEF W/PRN TYLENOL. ADEQUATE UOP USING URINAL. AFIB IN 90S-110S ON TELEMETRY. SWELLING NOTED IN PENIS, SCROTUM. AND BILATERAL LEGS. RALF HOSE IN PLACE AND ELEVATING WHEN ABLE. WILL CONTINUE TO MONITOR AND PASS ON TO DAY RN.
[2021-08-28 06:43] LABS: Albumin, Blood 2.6 g/dL (3.4-5.0); Anion Gap 7 mmol/L (6-16); Blood Urea Nitrogen 58 mg/dL (8-24); Bun/Creatinine Ratio 27.5 (12.0-20.0); CO2, Blood 40 mmol/L (21-32); Calcium, Blood 8.6 mg/dL (8.5-10.1); Chloride, Blood 88 mmol/L (98-108); Creatinine, Blood 2.11 mg/dL (0.60-1.20); Glomerular Filtration Rate 32 (60-); Glucose, Blood 122 mg/dL (70-99); Phosphorus, Blood 4.2 mg/dL (2.5-4.9); Potassium, Blood 3.1 mmol/L (3.5-5.5); Sodium, Blood 135 mmol/L (136-145)
--- NOTE | 2021-08-28 07:52 | NUR ---
Dillon is sitting up in the recliner, eating breakfast. Vital signs are stable. He is eager to go home, talking about it all morning. He says that he is "really feeling good". STates that he feels better than yesterday in his "balance, focus of his eyes and everything."
--- NOTE | 2021-08-28 11:24 | NUR ---
Ambulated in the hallway, minimal assistance needed, mostly cues. Giat belt and walker in use. Assisted back to chair where he is waiting for his family to arrive. Janett Billings called in anticipation of need for janett when son Edmund and daughter Suzy get here.
--- NOTE | 2021-08-28 12:42 | NUR ---
Pt's daughter and Breanna are here at the bedside.
--- NOTE | 2021-08-28 15:05 | NUR ---
Pt c/o buring when urinating. Call to Dr. Cabral and UA was ordered.
[2021-08-28 15:27] LABS: Source, Urine Clean Catch
[2021-08-28 15:34] LABS: Appearance, Urine Hazy (Clear); Bilirubin, Urine Neg (Neg); Blood, Urine 2+ (Neg); Color, Urine Yellow (P-Yellow); Glucose Qualitative, Urine 2+ (Neg); Ketones, Urine Neg (Neg); Leukocyte Esterase, Urine 3+ (Neg); Nitrite, Urine Pos (Neg); Protein, Urine 2+ (Neg); Specific Gravity, Urine 1.005 (1.003-1.022); Urobilinogen, Urine 2+ (Normal)
[2021-08-28 15:41] LABS: Bacteria Many /hpf; Squamous Epithelial Cells Rare /hpf (Few); White Blood Cells, Urine TNTC /hpf (0-5)
[2021-08-28 15:42] LABS: Granular Casts 0-2 /lpf (0); Hyaline Casts 0-2 /lpf (0-2)
--- NOTE | 2021-08-28 15:46 | NUR ---
Urethral perineal cleansing done before voiding. Pt voided into clean unused urinal and urine specimen was sent to lab for UA, culture if indicated.
[2021-08-28 17:46] LABS: Bun/Creatinine Ratio 26.9 (12.0-20.0); Calcium, Blood 8.5 mg/dL (8.5-10.1); Creatinine, Blood 2.08 mg/dL (0.60-1.20); Potassium, Blood 3.5 mmol/L (3.5-5.5)
--- NOTE | 2021-08-28 18:14 | NUR ---
Very frequent, hacking cough. Given cough syrup as well as Tessalon perles at this time. The pt has managed to cough up some phlegm, which he swallowed. The pt has been voiding small amounts, 50-100 cc at a time, and states that it no longer kelsey when he voids.
[2021-08-29 04:25] LABS: Hematocrit 36.3 % (37.0-53.0); Hemoglobin 11.9 g/dL (13.5-17.5)
[2021-08-29 04:39] LABS: Albumin, Blood 2.7 g/dL (3.4-5.0); Anion Gap 6 mmol/L (6-16); Blood Urea Nitrogen 56 mg/dL (8-24); Bun/Creatinine Ratio 27.3 (12.0-20.0); CO2, Blood 40 mmol/L (21-32); Calcium, Blood 8.5 mg/dL (8.5-10.1); Chloride, Blood 88 mmol/L (98-108); Creatinine, Blood 2.05 mg/dL (0.60-1.20); Glomerular Filtration Rate 33 (60-); Glucose, Blood 104 mg/dL (70-99); Phosphorus, Blood 3.9 mg/dL (2.5-4.9); Potassium, Blood 3.3 mmol/L (3.5-5.5); Sodium, Blood 134 mmol/L (136-145)
--- NOTE | 2021-08-29 06:25 | NUR ---
NOC SHIFT SUMMARY PT ORIENTED X4 OVERNIGHT, NEEDS REORIENTING WHEN FIRST AWAKENS OR VERY SLEEPY. PT SLEPT VERY LITTLE OVERNIGHT. VSS, ON RA. GENERALIZED PAIN AND RELIEF W/PRN TYLENOL. ADEQUATE UOP USING URINAL. AFIB IN 90S-110S ON TELEMETRY. SWELLING NOTED IN PENIS, SCROTUM. AND BILATERAL LEGS. RALF HOSE IN PLACE AND ELEVATING WHEN ABLE. WILL CONTINUE TO MONITOR AND PASS ON TO DAY RN.
[2021-08-29 15:26] LABS: Bun/Creatinine Ratio 27.3 (12.0-20.0); Calcium, Blood 8.5 mg/dL (8.5-10.1); Creatinine, Blood 2.05 mg/dL (0.60-1.20); Potassium, Blood 3.8 mmol/L (3.5-5.5)
[2021-08-29] MEDS ORDERED: Tylenol325 MG PO (16:53)
[2021-08-29] MEDS ORDERED: Tessalon200 MG PO (16:54)
[2021-08-29] MEDS ORDERED: CARV6.25 PO (16:55)
[2021-08-29] MEDS ORDERED: JARDIANCE25 MG PO (16:57)
[2021-08-29] MEDS ORDERED: Ciprofloxacin2.5 ML BOTHEYES (16:57)
[2021-08-29] MEDS ORDERED: HYDRA25 PO (16:58)
[2021-08-29] MEDS ORDERED: Isosorbide Mono30 MG PO (17:07)
[2021-08-29] MEDS ORDERED: MELADOX PO (17:12)
[2021-08-29] MEDS ORDERED: SPIR25 PO (17:16)
[2021-08-29] MEDS ORDERED: PANT20 PO (17:17)
--- NOTE | 2021-08-29 18:31 | NUR ---
DISCHARGE SUMMARY: PATIENT WAS WHEELED OUT VIA WC BY RN AND PCT. PT DENIES CP,SOB, IS VERY RELIEVED TO LEAVE DECREASED ANXIETY. PATIENT HAS BEEN EDUCASSTED ON CHRONINC ILLNESS ALONG WITH FAMILY, DISCHARGE INSTRUCTIONS WERE COMPLETELY UNDERSTOOD WITH NO FURTHER QUESTIONS COMMENTS OR CONCERNS. PATIENT IN NO ACUTE SIGN OF DISTRESS ON RA, AND ALL PERSONAL BELONGINGS. PATIENT FAMILY EDUCATED ON DISCHARGE WELL, IN DEPTH EDUCATEION OF >45MINUTES GIVEN ON CHRONIC ILLNESS, MEDICATION ADHERENCE, AND SYMPTOM MANAGEMENT. NO CONCERNS FROM THIS SCRIP CLERK AT THIS TIME.
== END 2021-08-29 18:10 | disposition home health service (06) | DRG 291 ==
LOC: ER 20:51 → PCU 23:45
PROVIDERS: Emergency Medicine; Family Medicine; Internal Medicine; Internal Medicine Interventional Cardiology; Physician Assistant; ADMIT Internal Medicine
PROC: 5A09457 Assistance with Respiratory Ventilation, 24-96 Consecutive Hours, Continuous Positive Airway Pressure (ICD-10-PCS; principal; 2021-08-20)
DX: I13.0 Hypertensive heart and chronic kidney disease with heart failure and stage 1 through stage 4 chronic kidney disease, or unspecified chronic kidney disease (principal); I50.21 Acute systolic (congestive) heart failure; N18.30 Chronic kidney disease, stage 3 unspecified; I48.91 Unspecified atrial fibrillation; Z68.36 Body mass index [BMI] 36.0-36.9, adult; E66.9 Obesity, unspecified; F41.9 Anxiety disorder, unspecified; E87.6 Hypokalemia; I95.2 Hypotension due to drugs; Z86.16 Personal history of COVID-19; I27.20 Pulmonary hypertension, unspecified; T50.2X5A Adverse effect of carbonic-anhydrase inhibitors, benzothiadiazides and other diuretics, initial encounter; R33.9 Retention of urine, unspecified; I07.1 Rheumatic tricuspid insufficiency; Z79.01 Long term (current) use of anticoagulants; Z79.899 Other long term (current) drug therapy
CPT/HCPCS: 0241U; 36415; 36600; 51703; 71045; 76705; 76770; 80048; 80053; 80061; 80069; 81001; 81003; 82550; 82565; 82803; 83735; 83880; 84132; 84443; 84484; 85014; 85018; 85025; 85027; 87077; 87086; 87186; 93005; 93010; 93306; 94640; 94660; 94664; 94760; 94762; 96374; 96375; 97110; 97116; 97162; 97166; 97530; 97535; 99285-25; A9270; C1751; C9113; J0282; J1650; J1940; J2930; J3475; J3480; J7040; J7060

== ENCOUNTER 2021-09-06 11:42 | Emergency (ER) | payer OTHER ==
[~2021-09-06] VITALS: Ht 182.9 cm; Wt 81.7 kg
[~2021-09-06 11:42] MED LIST: ALBU90OI INH; AMLO10 PO; CARV6.25 PO; Ciprofloxacin2.5 ML BOTHEYES; ELIQUIS5 M2 PO; FURO40 PO; HYDRA25 PO; Isosorbide Mono30 MG PO; JARDIANCE25 MG PO; LOSA50 PO; MELADOX PO; METO50ER PO; NIACIN500 M1 PO; PANT20 PO; POTA10T PO; ROSU5 PO; SERT50 PO; SPIR25 PO; TRAZ50 PO; Tessalon200 MG PO; Tylenol325 MG PO
[2021-09-06 12:50] LABS: BASOPHILS ABSOLUTE AUTO 0.02 K/mm3 (0.00-0.23); BASOPHILS PERCENT AUTO 0 % (0-2); EOSINOPHILS ABSOLUTE AUTO 0.13 K/mm3 (0.00-0.68); EOSINOPHILS PERCENT AUTO 2 % (0-6); Hematocrit 32.1 % (37.0-53.0); Hemoglobin 10.7 g/dL (13.5-17.5); IMMATURE GRAN ABSOLUTE AUTO 0.02 K/mm3 (0.00-0.10); IMMATURE GRAN PERCENT AUTO 0 % (0-1); LYMPHOCYTES ABSOLUTE AUTO 0.51 K/mm3 (0.84-5.20); LYMPHOCYTES PERCENT AUTO 7 % (21-46); MONOCYTES PERCENT AUTO 11 % (4-13); Mean Corpuscular HGB 28.3 pg (26.0-34.0); Mean Corpuscular HGB Conc 33.3 g/dL (31.5-36.5); Mean Corpuscular Volume 85 fL (80-100); Mean Platelet Volume 10.6 fL (9.1-12.4); NEUTROPHILS ABSOLUTE AUTO 5.79 K/mm3 (1.96-9.15); NEUTROPHILS PERCENT AUTO 80 % (41-73); Platelet Count 245 K/mm3 (150-400); RDW Coefficient Variation 17.6 % (11.7-14.2); RDW Standard Deviation 53.5 fL (35.1-46.3); Red Blood Cell Count 3.78 M/mm3 (4.30-5.90); White Blood Cell Count 7.27 K/mm3 (4.00-11.30)
[2021-09-06 13:05] LABS: Source, Urine Clean Catch
[2021-09-06 13:07] LABS: Appearance, Urine Clear (Clear); Bilirubin, Urine Neg (Neg); Blood, Urine 2+ (Neg); Color, Urine Yellow (P-Yellow); Glucose Qualitative, Urine Neg (Neg); Ketones, Urine Neg (Neg); Leukocyte Esterase, Urine 3+ (Neg); Nitrite, Urine Neg (Neg); Protein, Urine 2+ (Neg); Specific Gravity, Urine 1.015 (1.003-1.022); Urobilinogen, Urine 2+ (Normal)
[2021-09-06 13:13] LABS: Albumin, Blood 2.8 g/dL (3.4-5.0); Albumin/Globulin Ratio 0.7 (0.8-1.8); Bilirubin, Total 1.8 mg/dL (0.1-1.0); Bun/Creatinine Ratio 21.1 (12.0-20.0); Calcium, Blood 8.8 mg/dL (8.5-10.1); Creatinine, Blood 2.66 mg/dL (0.60-1.20); Globulin, Blood 4.1 g/dL (2.2-4.0); Magnesium, Blood 2.9 mg/dL (1.6-2.4); Potassium, Blood 4.5 mmol/L (3.5-5.5); Total Protein, Blood 6.9 g/dL (6.4-8.2)
[2021-09-06 13:19] LABS: White Blood Cells, Urine 25-50 /hpf (0-5)
[2021-09-06 13:20] LABS: Bacteria Few /hpf; Squamous Epithelial Cells Rare /hpf (Few)
[2021-09-06] MEDS ORDERED: CEPH500 PO (15:56)
== END 2021-09-06 16:55 | disposition home or self-care (01) ==
LOC: ER 11:42
PROVIDERS: Physician Assistant
DX: I13.0 Hypertensive heart and chronic kidney disease with heart failure and stage 1 through stage 4 chronic kidney disease, or unspecified chronic kidney disease (principal); N18.9 Chronic kidney disease, unspecified; I50.9 Heart failure, unspecified; N39.0 Urinary tract infection, site not specified; E66.9 Obesity, unspecified; Z79.899 Other long term (current) drug therapy; Z79.01 Long term (current) use of anticoagulants
CPT/HCPCS: 36415; 80053; 81001; 83735; 83880; 85025; J0696

== ENCOUNTER 2021-09-25 15:37 | Emergency (ER) | payer OTHER ==
[~2021-09-25] VITALS: Ht 182.9 cm; Wt 115.7 kg
[~2021-09-25 15:37] MED LIST changes: +CEPH500 PO
[2021-09-25 17:19] LABS: BASOPHILS ABSOLUTE AUTO 0.05 K/mm3 (0.00-0.23); BASOPHILS PERCENT AUTO 1 % (0-2); EOSINOPHILS ABSOLUTE AUTO 0.19 K/mm3 (0.00-0.68); EOSINOPHILS PERCENT AUTO 3 % (0-6); Hematocrit 36.3 % (37.0-53.0); Hemoglobin 11.5 g/dL (13.5-17.5); IMMATURE GRAN ABSOLUTE AUTO 0.02 K/mm3 (0.00-0.10); IMMATURE GRAN PERCENT AUTO 0 % (0-1); LYMPHOCYTES ABSOLUTE AUTO 0.54 K/mm3 (0.84-5.20); LYMPHOCYTES PERCENT AUTO 8 % (21-46); MONOCYTES ABSOLUTE AUTO 1.04 K/mm3 (0.16-1.47); MONOCYTES PERCENT AUTO 15 % (4-13); Mean Corpuscular HGB 28.1 pg (26.0-34.0); Mean Corpuscular HGB Conc 31.7 g/dL (31.5-36.5); Mean Corpuscular Volume 89 fL (80-100); Mean Platelet Volume 8.9 fL (9.1-12.4); NEUTROPHILS ABSOLUTE AUTO 4.96 K/mm3 (1.96-9.15); NEUTROPHILS PERCENT AUTO 73 % (41-73); Platelet Count 223 K/mm3 (150-400); RDW Coefficient Variation 20.3 % (11.7-14.2); RDW Standard Deviation 64.6 fL (35.1-46.3); Red Blood Cell Count 4.09 M/mm3 (4.30-5.90)
[2021-09-25 17:40] LABS: Albumin, Blood 2.7 g/dL (3.4-5.0); Albumin/Globulin Ratio 0.6 (0.8-1.8); Bilirubin, Total 1.4 mg/dL (0.1-1.0); Bun/Creatinine Ratio 21.9 (12.0-20.0); Creatinine, Blood 1.87 mg/dL (0.60-1.20); Globulin, Blood 4.3 g/dL (2.2-4.0); Potassium, Blood 4.5 mmol/L (3.5-5.5)
== END 2021-09-26 00:55 | disposition home or self-care (01) ==
LOC: ER 15:37 → MEDS 21:47 → ER 09-26 00:55
PROVIDERS: Physician Assistant
DX: I13.0 Hypertensive heart and chronic kidney disease with heart failure and stage 1 through stage 4 chronic kidney disease, or unspecified chronic kidney disease (principal); N18.30 Chronic kidney disease, stage 3 unspecified; I50.22 Chronic systolic (congestive) heart failure; I48.91 Unspecified atrial fibrillation; R60.1 Generalized edema; Z79.899 Other long term (current) drug therapy; Z79.01 Long term (current) use of anticoagulants; Z88.8 Allergy status to other drugs, medicaments and biological substances
CPT/HCPCS: 36415; 71046; 80053; 83690; 83880; 84484; 85025; 93005; 93010; 99284-25

== ENCOUNTER 2021-11-25 13:40 | Inpatient (IN) | payer OTHER ==
[~2021-11-25] VITALS: Ht 182.9 cm; Wt 120.9 kg
[2021-11-25 14:37] LABS: BASOPHILS ABSOLUTE AUTO 0.03 K/mm3 (0.00-0.23); BASOPHILS PERCENT AUTO 1 % (0-2); EOSINOPHILS ABSOLUTE AUTO 0.12 K/mm3 (0.00-0.68); EOSINOPHILS PERCENT AUTO 2 % (0-6); Hematocrit 36.2 % (37.0-53.0); Hemoglobin 11.5 g/dL (13.5-17.5); IMMATURE GRAN ABSOLUTE AUTO 0.01 K/mm3 (0.00-0.10); IMMATURE GRAN PERCENT AUTO 0 % (0-1); LYMPHOCYTES ABSOLUTE AUTO 0.43 K/mm3 (0.84-5.20); LYMPHOCYTES PERCENT AUTO 8 % (21-46); MONOCYTES ABSOLUTE AUTO 0.65 K/mm3 (0.16-1.47); MONOCYTES PERCENT AUTO 12 % (4-13); Mean Corpuscular HGB 28.6 pg (26.0-34.0); Mean Corpuscular HGB Conc 31.8 g/dL (31.5-36.5); Mean Corpuscular Volume 90 fL (80-100); Mean Platelet Volume 10.4 fL (9.1-12.4); NEUTROPHILS PERCENT AUTO 78 % (41-73); Platelet Count 272 K/mm3 (150-400); RDW Coefficient Variation 18.4 % (11.7-14.2); RDW Standard Deviation 60.4 fL (35.1-46.3); Red Blood Cell Count 4.02 M/mm3 (4.30-5.90); White Blood Cell Count 5.54 K/mm3 (4.00-11.30)
[2021-11-25 15:37] LABS: Albumin, Blood 2.4 g/dL (3.4-5.0); Albumin/Globulin Ratio 0.6 (0.8-1.8); Bilirubin, Total 1.7 mg/dL (0.1-1.0); Bun/Creatinine Ratio 19.3 (12.0-20.0); Calcium, Blood 8.7 mg/dL (8.5-10.1); Creatinine, Blood 2.18 mg/dL (0.60-1.20); Globulin, Blood 3.7 g/dL (2.2-4.0); Total Protein, Blood 6.1 g/dL (6.4-8.2)
[2021-11-25 15:39] LABS: Base Excess Venous 0.4 mmol/L; Bicarbonate Venous 23.8 mmol/L (24.0-30.0); PCO2 Venous 51.5 mmHg (38-42); pH Blood Venous 7.32 (7.34-7.37)
[2021-11-25 15:39] LABS: Magnesium, Blood 2.3 mg/dL (1.6-2.4)
[2021-11-25 15:42] LABS: Ethanol (Alcohol), Blood, Med <3 mg/dL
[2021-11-25 16:57] LABS: Free Thyroxine 1.12 ng/dL (0.70-1.60)
[2021-11-25 16:58] LABS: Triiodothyronine, Free 1.3 pg/mL (2.18-3.98)
[2021-11-25 19:37] LABS: Source, Urine Clean Catch
[2021-11-25 19:51] LABS: Appearance, Urine Clear (Clear); Bilirubin, Urine Neg (Neg); Blood, Urine Neg (Neg); Color, Urine Yellow (P-Yellow); Glucose Qualitative, Urine Neg (Neg); Ketones, Urine Neg (Neg); Leukocyte Esterase, Urine Neg (Neg); Nitrite, Urine Neg (Neg); Protein, Urine Neg (Neg); Urobilinogen, Urine NORM (Normal)
--- NOTE | 2021-11-25 19:53 | NUR ---
PT ARRIVED TO UNIT AT 1952.
[2021-11-25 20:04] LABS: U Amphetamine Screen Not Detected; U Barbituate Screen Not Detected; U Benzodiazapine Screen Not Detected; U Buprenorphine Screen Not Detected; U Cannabinoids Screen Not Detected; U Cocaine Screen Not Detected; U Methadone Screen Not Detected; U Methamphetamine Screen Not Detected; U Opiates Screen Not Detected; U Oxycodone Screen Not Detected; U Phencyclidine Screen Not Detected; U Propoxyphene Screen Not Detected
--- NOTE | 2021-11-25 20:43 | NUR ---
PLACED ON CARDIAC MONITORING. A FIB AT 89. ASYMPTOMATIC. CALL LIGHT IN REACH
--- NOTE | 2021-11-26 03:35 | NUR ---
[facility] TO [facility]QUEST[facility] LIST BE FAXED TO MEDICAL FLOOR.
[2021-11-26] MEDS ORDERED: DOXE10 PO (04:15)
[2021-11-26] MEDS ORDERED: HYDRA25 PO (04:16)
--- NOTE | 2021-11-26 04:40 | NUR ---
CALL TO DAUGHTER, YONATAN, TO UPDATE HER. SHE LIVES IN [place] AND PLANS TO COME UP TO SEE PT ON WEDNESDAY NIGHT/WEDNESDAY MORNING. SHE WOULD LIKE TO TALK WITH PALLIATIVE CARE AND UPDATE HIS POLST WITH HIM.
[2021-11-26 05:30] LABS: BASOPHILS ABSOLUTE AUTO 0.04 K/mm3 (0.00-0.23); BASOPHILS PERCENT AUTO 1 % (0-2); EOSINOPHILS ABSOLUTE AUTO 0.23 K/mm3 (0.00-0.68); EOSINOPHILS PERCENT AUTO 4 % (0-6); Hematocrit 37.4 % (37.0-53.0); Hemoglobin 11.6 g/dL (13.5-17.5); IMMATURE GRAN ABSOLUTE AUTO 0.01 K/mm3 (0.00-0.10); IMMATURE GRAN PERCENT AUTO 0 % (0-1); LYMPHOCYTES ABSOLUTE AUTO 0.52 K/mm3 (0.84-5.20); LYMPHOCYTES PERCENT AUTO 9 % (21-46); MONOCYTES ABSOLUTE AUTO 0.57 K/mm3 (0.16-1.47); MONOCYTES PERCENT AUTO 10 % (4-13); Mean Corpuscular HGB 28.4 pg (26.0-34.0); Mean Corpuscular Volume 91 fL (80-100); Mean Platelet Volume 10.3 fL (9.1-12.4); NEUTROPHILS ABSOLUTE AUTO 4.19 K/mm3 (1.96-9.15); NEUTROPHILS PERCENT AUTO 75 % (41-73); Platelet Count 267 K/mm3 (150-400); RDW Coefficient Variation 18.4 % (11.7-14.2); RDW Standard Deviation 60.9 fL (35.1-46.3); Red Blood Cell Count 4.09 M/mm3 (4.30-5.90); White Blood Cell Count 5.56 K/mm3 (4.00-11.30)
--- NOTE | 2021-11-26 05:42 | NUR ---
A&Ox3 WITH EPISODES OF CONFUSION, BUT EASILY REORIENTED. PLEASANT AND COOPERATIVE WITH CARE. HAS SLEPT VERY LITTLE T/O THE NIGHT. INITIALLY WAS INCONTINENT, BUT PREFERS TO AMBULATE TO THE BATHROOM. 1-PERSON ASSIST W/ GB&FWW. HAS BEEN VERY HUNGRY T/O SHIFT ASKING FOR MULTIPLE SNACKS, STATING HE HAS NOT BEEN ABLE TO EAT IN FOUR DAYS D/T ILLNESS SO HE'S VERY HUNGRY, NOW. DAUGHTER, YONATAN, CALLED AND UPDATED WHEN PT ARRIVED ON UNIT. TELE A-FIB @ 86bpm. SEVERAL LESIONS IN MULTIPLE STAGES OF HEALING R/T FALLS AND "PICKING". EDEMA BLEs ABOVE KNEE AND BELOW WAIST, PARTICULARLY SCROTAL EDEMA. RECEIVED 200u ALBUMIN LAST NIGHT. MUST MORE AWAKE AND ALERT THAN HE WAS UPON ARRIVING TO FLOOR. REPORT TO ONCOMING RN.
[2021-11-26 06:05] LABS: Albumin, Blood 3.1 g/dL (3.4-5.0); Albumin/Globulin Ratio 0.7 (0.8-1.8); Bilirubin, Total 1.9 mg/dL (0.1-1.0); Bun/Creatinine Ratio 18.5 (12.0-20.0); Calcium, Blood 8.7 mg/dL (8.5-10.1); Creatinine, Blood 2.22 mg/dL (0.60-1.20); Globulin, Blood 4.4 g/dL (2.2-4.0); Potassium, Blood 4.1 mmol/L (3.5-5.5); Total Protein, Blood 7.5 g/dL (6.4-8.2)
--- NOTE | 2021-11-26 06:49 | NUR ---
CALL FROM MALIKA MCKNIGHT REQUESTING COAG STUDIES FOR PT PRIOR TO CENTESIS TODAY. PER ANUJA CARRION FOR STUDIES. ORDERS PLACED.
[2021-11-26 08:05] LABS: International Normalized Ratio 1.57
--- NOTE | 2021-11-26 14:25 | NUR ---
Spiritual care visit conducted. Upon receivinga spiritual care referral, I visit pt. Pt immediately tells jokes but then shifts to talking about the PTSD of [place] as being [employer], the struggles of having his driver's license reviewing officer's license taken from him and the hurt of his family telling him that he "gets confused." He is tearful at times but also talks about his Shinto beck with a sense of paul and hope. I normalize his experience, provide therapeutic listening and prayer. Pt responds well and shows signs of an elevated mood and renewed hope. I will continue to remian available.
--- NOTE | 2021-11-26 17:41 | NUR ---
PT IS AOX2-3 WITH CONFUSION THAT CAN BE LESS AT TIMES OR MORE PRONOUNCED. PT WAS MUCH MORE ORIENTED EARLIER IN THE DAY. CONFUSION STARTED TO INCREASE AROUND 1500 WITH PT BECOMMING MORE IMPULSIVE WITH TRYING TO GET OUT OF BED. PT WORKED WELL TODAY WITH PHYSICAL THERAPY. PT DOES NOT USE CALL LIGHT AND BED ALARM IS IN PLACE.WILL CONTINUE TO MONITOR.
--- NOTE | 2021-11-26 18:18 | NUR ---
Spoke by telephone to pt's daughter Suzy, and she is leaning toward changing pt's code status to DNR. However, she states she is feeling admittedly overwhelmed, and wants to check with her brother bernardino; make a final decision tomorrow.
--- NOTE | 2021-11-27 06:19 | NUR ---
LINEMAN SUMMARY NO ACUTE CHANGES. PT A/OX3-4 W/SOME CONFUSION. PT REORIENTING SELF TO DATE AND TIME T/O THE NIGHT. PT AWAKE T/O THE NIGHT; VERY MINIMAL SLEEP. PT WAS COOPERATIVE WITH CARE. PT WOULD CALL OUT FOR ASSISTANCE; USED CALL LIGHT MINIMALLY. PT ON TELE; TECH CALLED TO REPORT A 5 BEAT RUN OF VTACH. PT WAS ASYMPTOMATIC. PT WAS RESTLESS T/O THE NIGHT; ASSISTED PT TO RECLINER; PT REPORTS IT IS MORE COMFORTABLE. NOTED INCREASED EPISODES OF COUGHING WHEN THE PT WAS DRINKING WATER/EATING ICE. OFFERED THICKENED CHICK BROTH; PT TOLERATED WELL. PT FOCUSED ON EATING FOOD AND CALLING FAMILY; REDIRECTED PT.
[2021-11-27 06:42] LABS: Bun/Creatinine Ratio 17.8 (12.0-20.0); Calcium, Blood 8.4 mg/dL (8.5-10.1); Creatinine, Blood 2.14 mg/dL (0.60-1.20); Magnesium, Blood 2.2 mg/dL (1.6-2.4); Phosphorus, Blood 4.9 mg/dL (2.5-4.9); Potassium, Blood 3.8 mmol/L (3.5-5.5)
--- NOTE | 2021-11-27 17:58 | NUR ---
SHIFT SUMMARY PT UP IN CHAIR DURING ENTIRE SHIFT. OCCASIONALLY CALLING OUT. FAMILY AT BEDSIDE DURING LUNCH. SPOKE WITH DAUGHTER ON THE PHONE. PT ORIENTED TO SELF ONLY THIS MORNING AND NEEDED MULTIPLE CUES TO REMEMBER WHAT TOWN HE IS IN AND WAS UNABLE TO STATE MONTH OR DATE AT ALL. CONTINUOUS PULSE OXIMETER ON AND MAINTAINS IN LOW 90'S. NO SOB NOTED WITH ACTIVITY. PICKS AT SCABS TIL THEY BLEED.
--- NOTE | 2021-11-27 18:59 | NUR ---
Pt is sitting up in chair next to bed. He is alert, oriented to self. His [place] [facility] assist in making decisions related to both pt and his (who has dementia). Plan to talk more indepth tomorrow when daughter Suzy has settled in.
[2021-11-28 06:25] LABS: Albumin, Blood 2.8 g/dL (3.4-5.0); Anion Gap 7 mmol/L (6-16); Blood Urea Nitrogen 38 mg/dL (8-24); Bun/Creatinine Ratio 16.5 (12.0-20.0); CO2, Blood 30 mmol/L (21-32); Calcium, Blood 8.8 mg/dL (8.5-10.1); Chloride, Blood 101 mmol/L (98-108); Creatinine, Blood 2.31 mg/dL (0.60-1.20); Glomerular Filtration Rate 28 (60-); Glucose, Blood 87 mg/dL (70-99); Phosphorus, Blood 4.1 mg/dL (2.5-4.9); Potassium, Blood 3.8 mmol/L (3.5-5.5); Sodium, Blood 138 mmol/L (136-145)
--- NOTE | 2021-11-28 06:47 | NUR ---
WEATHERIZATION AND HOUSING INSPECTOR SUMMARY NO ACUTE EVENTS. PT ORIENTATION FLUCTUATES; AOX/2. PT RESTED COMFORTABLY IN BED T/O THE NIGHT; PT MUCH MORE RESTFUL TONIGHT THAN PREVIOUS NIGHT. PT ORIENTED TO SELF AND SITUATION. TALKED TO DAUGHTER, YONATAN ON THE PHONE; SHE STATED SHE WILL BE HERE 11/28/21 AT 1330; EXPRESSED CONCERNS OVER NO HAND DRAWER IN HELPER EVALUATION AND DISCHARGING TOO SOON. SHE SAID FAMILY DISCUSSED AND WANT TO CHANGE PT CODE STATUS TO DNR. PT CONTINUES TO CALL OUT FOR ASSISTANCE; HE DOES NOT USE THE CALL LIGHT APPROPRIATELY. BED/CHAIR LOCKED AND ALARM SET FOR SAFETY.
--- NOTE | 2021-11-28 17:55 | NUR ---
SHIFT SUMMARY; PATIENT PLEASANTLY CONFUSED DURING DAY. HAS SHORT TERM MEMORY LAPSE. HE ALSO HAS REPETITIVE QUESTIONS. FAMILY FOR THIS PATIENT COMES TO ROOM THIS AFTERNOON AND DAUGHTER YONATAN SIGNS MEDICAL RECORDS RELEASE FOR [facility] RELEASE OF RECORDS FOR PREVIOUS INPATIENT 6 WEEKS PRIOR. CAME TO CONSULT FOR THIS PATIENT AND HE WILL SPEAK WITH ABOUT PLANS FOR MANAGING THIS PATIENTS CHF BETTER WITH MEDICATIONS. PATIENT SITS IN CHAIR DURING DAY REFUSING TO GO BACK TO BED HIS LEGS HURT. HIS VITAL SIGNS ARE WNL. B/P IS SOFT AT 102 SYSTOLIC. PATIENT ABLE TO MAKE HIS NEEDS KNOWN AND DOES USE CALL LIGHT APPROPRIATELY. PLACED THIS PATIENT ON A 1500ML FLUID RESTRICTION. DAUGHTER YONATAN IS CALLING AROUND FOR POSSIBLE PLACEMENT FOR THIS PATIENT AND ALSO HIS SPOUSE BOTH APPEAR TO HAVE DEMENTIA AND MAY NOT BE ABLE TO RETURN HOME.
[2021-11-29 05:33] LABS: Albumin, Blood 2.5 g/dL (3.4-5.0); Anion Gap 5 mmol/L (6-16); Blood Urea Nitrogen 37 mg/dL (8-24); Bun/Creatinine Ratio 17.9 (12.0-20.0); CO2, Blood 33 mmol/L (21-32); Chloride, Blood 101 mmol/L (98-108); Creatinine, Blood 2.07 mg/dL (0.60-1.20); Glomerular Filtration Rate 32 (60-); Glucose, Blood 106 mg/dL (70-99); Phosphorus, Blood 3.5 mg/dL (2.5-4.9); Potassium, Blood 3.3 mmol/L (3.5-5.5); Sodium, Blood 139 mmol/L (136-145)
--- NOTE | 2021-11-29 06:41 | NUR ---
SHIFT SUMMARY: A/OX3-4. GENERALIZED SWELLING CONTINUED. ABD PADS AND KERLEX APPLIED TO BILATERAL LEGS DUE TO EDEMA CAUSING WEEPING LEGS. NO COMPLAINTS OF PAIN THROUGHOUT THE NIGHT. 1 PERSON ASSIST STANDBY ASSIST FOR MOBILIZATION. PT REPORTS FEELINGS OF LONLINESS AND ANXIETY WITH BEING IN THE HOSPITAL, EAGER FOR DISCHARGE. 400 ML INTAKE TOTAL TONIGHT- EDUCATION CONTINUED FOR FLUID RESTRICTION. PT VOIDING WELL WITH ADEQUATE OUTPUT. CALLS APPROPRIATELY, BED IN LOW POSITION, CALL RODRIGUEZ AND BELONGINGS IN REACH.
--- NOTE | 2021-11-29 09:33 | NUR ---
CALLED DR CASANOVA. RE BP. ANGEL GIVE COREG . CHECK IN AN HOUR FOR CHERY
--- NOTE | 2021-11-29 11:07 | NUR ---
CALLED DR GARCÍA, OKAYED GIVE BUMEX EVEN WITH LOW BP AND LASIX.
--- NOTE | 2021-11-29 11:22 | NUR ---
SPOKE TO DR CASANOVA. CONTINUE HOLD IMDUR. WILL MOVE TO PM ONLY.
--- NOTE | 2021-11-29 13:53 | NUR ---
DR DALAL, PLEASE GIVE IMDUR NOW. WILL BE CONTINUING IN AM DOSING.
--- NOTE | 2021-11-29 18:40 | NUR ---
PT QUITE PLEASANT TODAY. DAUGHTER IN AND STATES HE DOES HAVE DEMENTIA. HOWEVER DOING PRETTY WELL. HE ABLE TO TELL ME DATE AFTER 3-4 TRIES. PRESIDENT, DATE, , AGE. PLACE, EVENT. TOLD ME DAUGHTER AND AND NAMES. SOME FORGETFUL ON RECENT THINGS. DR CASANOVA STATES GIVE LASIX AND COREG IF BP RETAKE WAS >100. IT WAS, SO I GAVE. NO OTHER CONCERNS NOTED. BED IN LOW POSITION,C ALLLITE IN REACH, CALLS APROP
--- NOTE | 2021-11-30 04:07 | NUR ---
SHIFT SUMMARY: A/OX3, OCCASIONAL FORGETFULNESS. 1 PERSON ASSIST WITH WALKER FOR AMBULATION AND TRANSFERS. PT VERY RESTLESS THROUGHOUT THE NIGHT, APPEARED TO ONLY GET ABOUT 2 HOURS OF SLEEP. PT CONTINUED TO DECLINE HAVING ANY PAIN. MULTIPLE ATTEMPTS TO REPOSITION AND TRANSFERS FROM BED TO RECLINER. CONTINUED GENERALIZED EDEMA CAUSING VERY FIRM AND TIGHT SKIN THROUGHOUT. RIGHT LEG REMAINS LARGER IN SIZE THAN LEFT LEG. DRESSINGS ON BILATERAL LOWER EXTREMITIES CHANGED TONIGHT AND ARE IN PLACE DUE TO WEEPING OF LEGS. GOOD URINARY OUTPUT THROUGHOUT THE NIGHT. BED ALARM REMAINS ACTIVATED, BED IN LOW POSITION, CALL RODRIGUEZ AND BELONGINGS IN REACH.
[2021-11-30 09:06] LABS: Albumin, Blood 2.7 g/dL (3.4-5.0); Anion Gap 5 mmol/L (6-16); Blood Urea Nitrogen 35 mg/dL (8-24); Bun/Creatinine Ratio 18.7 (12.0-20.0); CO2, Blood 34 mmol/L (21-32); Calcium, Blood 7.9 mg/dL (8.5-10.1); Chloride, Blood 101 mmol/L (98-108); Creatinine, Blood 1.87 mg/dL (0.60-1.20); Glomerular Filtration Rate 37 (60-); Glucose, Blood 105 mg/dL (70-99); Phosphorus, Blood 3.2 mg/dL (2.5-4.9); Potassium, Blood 3.6 mmol/L (3.5-5.5); Sodium, Blood 140 mmol/L (136-145)
--- NOTE | 2021-11-30 18:45 | NUR ---
PT PLEASANT COOP TODAY. FAMILY IN TO KEEP HIM OCCUPIED TODAY. PT FAMILY STATES MAY LIKE TO GET HIS EYE DROPS GOING STARTED, SOME GOOPY EYES. LEGS WRAPPED AFTER SHOWER TODAY. NO NEW CONCERNS NOTED. BED IN LOW POSITION, CALL LITE IN [facility], CALLS APPROP
--- NOTE | 2021-12-01 04:46 | NUR ---
NURSE NOTE: UJMANA URIBE NOTIFIED- PT HAD 20 BEAT RUN OF VTACH- GITA URIBE GAVE TELEPHONE ORDER FOR MORNING LAB MAGNESIUM BLOOD DRAW. NO ADDITIONAL ORDERS AT THIS TIME.
--- NOTE | 2021-12-01 04:47 | NUR ---
SHIFT SUMMARY: A/OX3, FORGETFULL AT TIMES. 1 PERSON STANDBY ASSIST WITH AMBULATION. PT CONTINUED TO BE VERY RESTLESS AGAIN TONIGHT, UNABLE TO GET MUCH REST. PT DECLINES HAVING ANY PAIN. THIS RN NOTIFIED OF PT HAVING A 20 BEAT RUN OF VTACH. PT REMAINS VERY HUNGRY, FREQUENTLY ASKING FOR FOOD. NOTIFIED- MAGNESIUM LAB DRAW ORDERED. BED ALARM ACTIVATED, BED REMAINS IN LOW POSITION, CALL RODRIGUEZ AND BELONGINGS IN REACH.
[2021-12-01 05:51] LABS: Albumin, Blood 2.7 g/dL (3.4-5.0); Anion Gap 7 mmol/L (6-16); Blood Urea Nitrogen 35 mg/dL (8-24); Bun/Creatinine Ratio 19.8 (12.0-20.0); CO2, Blood 32 mmol/L (21-32); Calcium, Blood 8.4 mg/dL (8.5-10.1); Chloride, Blood 101 mmol/L (98-108); Creatinine, Blood 1.77 mg/dL (0.60-1.20); Glomerular Filtration Rate 39 (60-); Glucose, Blood 116 mg/dL (70-99); Phosphorus, Blood 3.4 mg/dL (2.5-4.9); Potassium, Blood 3.5 mmol/L (3.5-5.5); Sodium, Blood 140 mmol/L (136-145)
--- NOTE | 2021-12-01 13:05 | NUR ---
DR. PARIKH AT BEDSIDE DISCUSSING POSSIBLE ANGIOGRAM TOMORROW TO R/O ANY BLOCKAGES. PATIENT STATED THAT HE JUST HAD A SURGERY A FEW WEEKS AGO IN [place], BUT PATIENT COULDN'T REMEMBER WHICH SURGERY OR WHERE. SPOKE WITH DAUGHTER YONATAN WHO THOUGHT THAT THE PATIENT HAD AN ANGIOGRAM AT [facility] IN [place] IN SEPTEMBER OF THIS YEAR. THIS WAS CONFIRMED BY RECORDS FROM [facility] THAT ARE ON PATIENTS CHART.
--- NOTE | 2021-12-01 18:31 | NUR ---
SHIFT SUMMARY: PATIENT A&OX3, SLIGHTLY CONFUSED AND FORGETFUL AT TIMES. PLEASANT AND COOPERATIVE WITH CARE. AMBULATES WITH 1/SBA, FWW AND GAITBELT. ON TELE. PATIENT HAD 17 RUNS OF VTACH PER TOOLING SUPERVISOR THIS AM. DENIES CP/CHEST DISCOMFORT WHEN THE EVENT HAPPENED. PATIENT HAS BEEN AFIB @ 78 BPM T/O SHIFT. BUMEX WAS NOT GIVEN THIS AM DUE TO SOFT BP. DR. العلي WAS NOTIFIED. DIET HAS BEEN CHANGE TO LOW NA WITH FR OF 1500. PATIENT DAUGHTER HAD EXTENSIVE CONVERSATION WITH PALLIATIVE CARE NURSE REGARDING PATIENT'S MEDICAL CONDITION. HAS BEEN SITTING IN CHAIR MOST OF THIS SHIFT. CHAIR ALARM ON. CALL LIGHT AND PERSONAL BELONGINGS WITHIN REACH.
--- NOTE | 2021-12-02 04:17 | NUR ---
SHIFT SUMMARY MARV IS ALERT AND ORIENTED X2-3 BUT FORGETFUL. PATIENT HAS FREQUENTLY ASKED FOR SNACKS AND DRINKS. PATIENT IS REMINDED OF HIS FLUID RESTRICTION. PATIENT HAS HAD NO ACUTE EVENTS THIS SHIFT. VITAL SIGNS REVIEWED. PATIENT HAS HAD NO EVENTS ON TELE THIS SHIFT. PATIENT HAS HAD NO COMPLAINTS OF PAIN, NAUSEA, SOB OR VOMITTING THIS SHIFT. BED IN LOCKED AND LOWEST POSITION. CALL LIGHT IN PLACE. WILL MONITOR UNTIL SHIFT CHANGE.
[2021-12-02 05:59] LABS: Magnesium, Blood 1.8 mg/dL (1.6-2.4)
[2021-12-02 06:00] LABS: Albumin, Blood 2.7 g/dL (3.4-5.0); Anion Gap 7 mmol/L (6-16); Blood Urea Nitrogen 33 mg/dL (8-24); Bun/Creatinine Ratio 17.1 (12.0-20.0); CO2, Blood 31 mmol/L (21-32); Calcium, Blood 8.6 mg/dL (8.5-10.1); Chloride, Blood 100 mmol/L (98-108); Creatinine, Blood 1.93 mg/dL (0.60-1.20); Glomerular Filtration Rate 35 (60-); Glucose, Blood 83 mg/dL (70-99); Phosphorus, Blood 3.3 mg/dL (2.5-4.9); Sodium, Blood 138 mmol/L (136-145)
--- NOTE | 2021-12-02 09:45 | NUR ---
Met with pt, and daughter at bedside last evening to discuss goals of care. The patient stated he wants "Everything done", including CPR and being placed on a ventilator if "anything happens". He is aware that he's been having runs of V-tach at night, states he can feel it when it happens. The pt's adult children make it clear they want to support their dad's wishes, but they also state they realize how sick he is, and have privately stated to me they know he is dying. The patient openly admits he prefers not to stick to the fluid and salt restrictions, and if he "had it his way" he would be allowed to return home and live out his remaining days doing and eating what he wants. However, the family has been hesitant to suggest it as a possibility to him. Daughter Suzy has openly stated she would prefer to "keep him alive as long as possible because when he dies, his VA benefits disappear". She stated she does not want to initiate Medicaid because she intends to use their home for her own group home home, yet also openly admits she is unable to financially provide needed care for her parents. I have discussed this situation with Rosario, Digital Experience Manager. Plan to follow up today with patient and family, as there are no clearly defined goals of care, and while pt states he wants "everything done", he also states he wants to return home, eat and drink what and when he wants.
--- NOTE | 2021-12-02 17:06 | NUR ---
SHIFT SUMMARY: PATIENT A&OX2-3 AND FORGETFUL AT TIMES. PATIENT STILL ON FR OF 1500 MLS/DAY. BILAT LE DRESSING CHANGED. UP IN THE CHAIR MOST OF THE DAY. ON TELE, AFIB 95-110'S PER ELECTRICAL LABORATORY TECHNICIAN (PETTY). HAD EPISODE OF PROLONG QTC OF 0.52 SECONDS. PATIENT DENIES OF CP/CHEST DISCOMFORT WHEN THIS EVENT HAPPENED. DR. REINOSO WAS NOTIFIED. RECIEVED ORDER TO CALL [employer]. DR. PARIKH WAS NOTIFIED. RECIEVED ORDER TO PERFORM 12 LEAD EKG. RESULT WAS CALLED TO DR. PARIKH AND NO FURTHER ORDER. VITAL SIGNS REVIEWED. CHAIR ALARM ON FOR SAFETY. CALL LIGHT AND PERSONAL BELONGINGS WITHIN REACH.
--- NOTE | 2021-12-03 04:57 | NUR ---
SHIFT SUMMARY PATIENT IS ALERT BUT OFTEN CONFUSED. PATIENT HAS MEANDERING CONVERSATIONS THAT ARE NOT RELEVANT. PATIENT HAS NOT SLEPT AT ALL THIS SHIFT. PATIENT HAS HAD NO ACUTE EVENTS THIS SHIFT. VITAL SIGNS REVIEWED. PATIENT HAS HAD NO COMPLAINTS OF PAIN, NAUSEA, VOMITTING OR SOB THIS SHIFT. BED IN LOWEST AND LOCKED POSITION. CALL LIGHT IN PLACE. WILL MONITOR UNTIL SHIFT CHANGE.
[2021-12-03 06:01] LABS: Albumin, Blood 2.8 g/dL (3.4-5.0); Anion Gap 7 mmol/L (6-16); Blood Urea Nitrogen 38 mg/dL (8-24); CO2, Blood 31 mmol/L (21-32); Chloride, Blood 99 mmol/L (98-108); Glomerular Filtration Rate 34 (60-); Glucose, Blood 103 mg/dL (70-99); Potassium, Blood 3.8 mmol/L (3.5-5.5); Sodium, Blood 137 mmol/L (136-145)
--- NOTE | 2021-12-03 14:21 | NUR ---
Pt has had a change of heart after a long discussion today about goals of care. He stressed the importance of living out the rest of his days at his own home. We discussed the likelihood of him returning to the hospital for heart failure exacerbation, and he states he "doesn't like the idea of living his final days in the hospital". He admits to feeling afraid of , but today he states he realizes he will "eventually , like everyone does". He mentions wanting to see Assistant Teacher Sudhir today, and Sudhir has now been called. I spoke to pt's family who are on board with plan for hospice. He is being admitted tomorrow by Jose.
--- NOTE | 2021-12-03 15:40 | NUR ---
Spiritual care visit conducted. Pt is surrounded by family and friends in pt's rm. Pt is reluctant to talk about himself and most questions aimed at him he finds away to speak of the qualities and talents of those in the rm. It is clear that those in the rm are present to honor him. Pt states that his number one concern is getting back into shape. He feels that he has to do his part after the medical staff has, more than, done theirs. He is able to speak about his beck, the people that mean so much to him and the hope he has because of his Bahai beck. I provide prayer that caused pt and all in the rm to become a bit emotional. Pt voices much gratitude as does the family.
--- NOTE | 2021-12-03 19:03 | NUR ---
PATIENT A&OX3. PLEASANT AND COOPERATIVE WITH CARE. NO IV ACCESS. NO ACUTE CHANGES THIS SHIFT. PLAN TO DISCHARGE PATIENT HOME TOMORROW WITH [facility]. VITALS SIGNS REVIEWED. PATIENT HAD 6 BEAT RUN OF VTACH AND ASYMPTOMATIC. CHAIR ALARM ON AND CALL LIGHT IN REACH.
--- NOTE | 2021-12-04 04:20 | NUR ---
SHIFT SUMMARY PATIENT IS ALERT BUT CONFUSED. PATIENT HAS NOT SLEPT TONIGHT AT ALL. PATIENT TALKS TO HIMSELF AND CONSTANTLY MOVES FROM BED TO CHAIR AND TALKS TO HIMSELF. PATIENT HAS HAD NO ACUTE EVENTS THIS SHIFT. VITAL SIGNS REVIEWED. PATIENT HAS NOT COMPLAINED OF PAIN, SOB, NAUSEA, OR VOMITTING THIS SHIFT. BED ALARM IS ON. BED IN LOCKED AND LOWEST POSITION. CALL LIGHT IN PLACE. WILL MONITOR UNTIL SHIFT CHANGE.
[2021-12-04 06:06] LABS: Albumin, Blood 2.8 g/dL (3.4-5.0); Anion Gap 6 mmol/L (6-16); Blood Urea Nitrogen 40 mg/dL (8-24); Bun/Creatinine Ratio 19.8 (12.0-20.0); CO2, Blood 34 mmol/L (21-32); Calcium, Blood 8.7 mg/dL (8.5-10.1); Chloride, Blood 97 mmol/L (98-108); Creatinine, Blood 2.02 mg/dL (0.60-1.20); Glomerular Filtration Rate 33 (60-); Glucose, Blood 111 mg/dL (70-99); Phosphorus, Blood 4.1 mg/dL (2.5-4.9); Potassium, Blood 3.6 mmol/L (3.5-5.5); Sodium, Blood 137 mmol/L (136-145)
[2021-12-04] MEDS ORDERED: BUME2 PO (10:55)
[2021-12-04] MEDS ORDERED: MIDO5 PO (10:57)
[2021-12-04] MEDS ORDERED: EUTHYROX50 MCG PO (10:58)
--- NOTE | 2021-12-04 11:45 | NUR ---
AT 0935 VALENTINA SOOD CALLED THIS NURSE TO NOTIFIED THAT PATIENT HAD 9 BEAT RUN OF V-TACH BUT WAS BACK TO SINUS RHYTHM.
--- NOTE | 2021-12-04 12:46 | NUR ---
DISCHARGE SUMMARY: PT ALERT AND TIRED. PT DAUGHTER GIVEN EDUCATION ON BEING DISCHARGED HOME WITH [facility]. DAUGHTER AWARE OF APPOINTMENT AT 1300 WITH [facility], DAUGHTER SEEMED IN A HURRY TO GET TO THE APPINTMENT ON TIME. REQUESTED CARE MANAGEMENT TO BE PRESENT FOR ANY QUESTIONS ON HOSPICE CARE. PT RECEVIED POLST AND INFORMATION BOOKLET FOR [facility] CARE. PT HAD NO IV ACCESS TO REMOVED. PT BELONGS PACKED BY MILAGROS RUBY. PT WAS ESCORTED VIA WHEELCHAIR WITH DAUGHTER TO THE LOBBY. PT TRANSFERRED INTO THE CAR WITHOUT DIFFICULTY.
== END 2021-12-04 12:13 | disposition hospice, home (50) | DRG 291 ==
LOC: ER 13:40 → MEDS 17:59
PROVIDERS: Emergency Medicine; Family Medicine; Internal Medicine; Student in an Organized Health Care Education/Training Program; ADMIT Internal Medicine
DX: I13.0 Hypertensive heart and chronic kidney disease with heart failure and stage 1 through stage 4 chronic kidney disease, or unspecified chronic kidney disease (principal); G92.8 Other toxic encephalopathy; I50.23 Acute on chronic systolic (congestive) heart failure; N17.9 Acute kidney failure, unspecified; I48.20 Chronic atrial fibrillation, unspecified; I47.2 Ventricular tachycardia; E87.2 Acidosis; I42.0 Dilated cardiomyopathy; Z51.5 Encounter for palliative care; I27.20 Pulmonary hypertension, unspecified; N18.30 Chronic kidney disease, stage 3 unspecified; E87.5 Hyperkalemia; G31.84 Mild cognitive impairment of uncertain or unknown etiology; F43.10 Post-traumatic stress disorder, unspecified; F41.9 Anxiety disorder, unspecified; E03.9 Hypothyroidism, unspecified; I08.1 Rheumatic disorders of both mitral and tricuspid valves; E66.9 Obesity, unspecified; Z68.38 Body mass index [BMI] 38.0-38.9, adult; R94.31 Abnormal electrocardiogram [ECG] [EKG]; R74.01 Elevation of levels of liver transaminase levels; G47.9 Sleep disorder, unspecified; W19.XXXA Unspecified fall, initial encounter; Z88.8 Allergy status to other drugs, medicaments and biological substances; Z79.51 Long term (current) use of inhaled steroids; Z79.01 Long term (current) use of anticoagulants; Z79.899 Other long term (current) drug therapy; Z79.2 Long term (current) use of antibiotics
CPT/HCPCS: 36415; 70450; 71045; 74176; 80048; 80053; 80069; 81003; 82140; 82803; 82947; 83690; 83735; 83880; 84100; 84132; 84439; 84443; 84481; 85025; 85610; 85730; 93005; 93010; 94640; 94664; 94760; 94762; 97110; 97116; 97129; 97162; 97165; 97530; 97535; A9270; C9113; G0480; J1644; J1815; J1940; J7799; P9047